=== PATIENT | female | born 1980 | race Caucasian/White ===

== ENCOUNTER 2022-08-23 16:50 | Outpatient (CLI) | payer OTHER, SELFPAY ==
--- NOTE | ~2022-08-23 | MM_ITS ---
EXAMINATION: MM screening triny BI w dawna HISTORY: Screening mammogram TECHNIQUE: Craniocaudal and mediolateral oblique 3-D tomosynthesis images were obtained and synthetic 2-D images were generated. CAD analysis was submitted and interpreted. COMPARISON: No prior mammogram is available for comparison at this institution. BREAST PARENCHYMAL COMPOSITION: There are scattered areas of fibroglandular density. FINDINGS: There is a multilobular approximately 7.5 mm circumscribed mass with calcifications in the outer mid to lower right breast. There is a larger area of asymmetric soft tissue density with some microcalcifications situated in th e posterior mid right breast on MLO view. An irregular approximately 6 mm opacity is noted in the inner left breast. Circumscribed 5 x 5 mm opacity is noted in the outer left breast. IMPRESSION: 1. Bilateral breast masses 2. Bilateral diagnostic mammography and breast ultrasound examination are recommended. BI-RADS Category 0: Incomplete: Needs additional imaging evaluation. Reviewed, dictated and finalized at location A. EW TEACHER IMPRESSION: 1. Bilateral breast masses 2. Bilateral diagnostic mammography and breast ultrasound examination are recom mended. BI-RADS Category 0: Incomplete: Needs additional imaging evaluation.
== END 2022-08-23 16:51 | disposition home or self-care (01) ==
PROVIDERS: PCP Nurse Practitioner Obstetrics & Gynecology; Visit Provider Nurse Practitioner Obstetrics & Gynecology
DX: Z12.31 Encounter for screening mammogram for malignant neoplasm of breast (principal); N63.13 Unspecified lump in the right breast, lower outer quadrant; N63.25 Unspecified lump in the left breast, overlapping quadrants
CPT/HCPCS: 77063; 77067

== ENCOUNTER 2022-09-14 13:45 | Outpatient (CLI) | payer OTHER, SELFPAY ==
--- NOTE | ~2022-09-14 | MMUS_ITS ---
EXAMINATION: MM diagnostic triny BI w dawna, US breast BI complete HISTORY: Follow-up bilateral breast asymmetries TECHNIQUE: Additional 3-D tomosynthesis images of the breasts were performed and synthetic 2-D images were generated. CAD analysis was submitted and interpreted. High resolution bilateral complete breas t ultrasound was performed. COMPARISON: 08/23/2022 BREAST PARENCHYMAL COMPOSITION: Breast composed of scattered areas of fibroglandular density FINDINGS: MAMMOGRAPHIC FINDINGS: There are no suspicious masses, calcifications or architectural distortion in the right breast to sug gest malignancy. In the left breast there are small radiolucent circumscribed nodules, likely benign. ULTRASOUND: Complete bilateral US of all 4 quadrants of the breasts and retroareolar region was reviewed. Normal heterogeneous echotexture within both breasts without focal mass. No sonographic correlate to left br east masses. IMPRESSION: 1. Probable benign findings of the left breast. No sonographic correlate. 2. Recommend 6 month follow-up diagnostic left mammogram and possible additional ultrasound. BI-RADS category 3, probably benign findings. Reviewed, dictated and finalized at location A. IMPRESSION: 1. Probable benign findings of the left breast. No sonographic correlate. 2. Recommend 6 month follow-up diagnostic left mammogram and possible additiona l ultrasound. BI-RADS category 3, probably benign findings.
== END 2022-09-14 13:46 | disposition home or self-care (01) ==
LOC: ANHIMG 13:50
PROVIDERS: PCP Nurse Practitioner Obstetrics & Gynecology; Visit Provider Nurse Practitioner Obstetrics & Gynecology
DX: R92.8 Other abnormal and inconclusive findings on diagnostic imaging of breast (principal)
CPT/HCPCS: 76641; 77062; 77066; G0279

== ENCOUNTER 2023-07-19 12:14 | Outpatient (CLI) | payer OTHER, SELFPAY ==
--- NOTE | ~2023-07-19 | MMUS_ITS ---
EXAMINATION: MM diagnostic triny LT w dawna, US breast LT limited HISTORY: Overdue six-month follow-up of probably benign left breast masses TECHNIQUE: Craniocaudal, mediolateral, and mediolateral oblique 3-D tomosynthesis images of the left breast were performed and synthetic 2-D images were generated. CAD analysis was submitted and interpr eted. High resolution limited left breast ultrasound was performed. COMPARISON: 09/14/2022, 08/23/2022 BREAST PARENCHYMAL COMPOSITION: There are scattered areas of fibroglandular density. FINDINGS: MAMMOGRAPHIC FINDINGS: There is a stable 6 mm oval, circumscribed, equal density mass in the middle third of the outer breas t approximately 6 cm from the nipple at the 3:00 location which appears to contain central fat. The p reviously described mass at the 6:00 location disperses with spot compression. ULTRASOUND: There is a 6 mm x 3 mm intramammary lymph node at the 3:00 location, 3 cm from the nipple correspondi ng to the mammographic finding in question. No suspicious cystic or solid mass is identified. IMPRESSION: 1. No mammographic or sonographic evidence of malignancy. 2. Recommend routine screening mammography, due on the right next month. BI-RADS Category 2: Benign finding(s). Reviewed, dictated and finalized at location A. ENGRAVER IMPRESSION: 1. No mammographic or sonographic evidence of malignancy. 2. Recommend routine screening mammography, due on the right next month. BI-RADS Category 2: Benign finding(s).
== END 2023-07-19 12:15 | disposition home or self-care (01) ==
LOC: ANHIMG 12:15
PROVIDERS: PCP Nurse Practitioner Obstetrics & Gynecology; Visit Provider Nurse Practitioner Obstetrics & Gynecology
DX: N63.20 Unspecified lump in the left breast, unspecified quadrant (principal)
CPT/HCPCS: 76642; 77061; 77065; G0279

== ENCOUNTER 2024-07-23 09:27 | Outpatient (CLI) | payer OTHER, SELFPAY ==
--- NOTE | ~2024-07-23 | MM_ITS ---
EXAMINATION: MM screening [facility] BI w dawna HISTORY: Screening TECHNIQUE: Craniocaudal and mediolateral oblique 3-D tomosynthesis images were obtained and synthetic 2-D images were generated. CAD analysis was submitted and interpreted. COMPARISON: Comparison to multiple prior studies sequentially, with oldest reviewed study dated 08/23. BREAST PARENCHYMAL COMPOSITION: Not dense: There are scattered areas of fibroglandular density. FINDINGS: Stable mass in the mid outer aspect of the right breast at approximately 9:00, middle third containing calcifications likely corresponding to intramammary lymph nodes seen on ultrasound dated 07/19/2023. There is a developing cluster of calcifications mid aspect of the right breast posteriorly on MLO vi ew. At least one of the calcifications appear to layer. IMPRESSION: 1. Developing cluster of indeterminate right breast calcifications. 2. Recommend exaggerated CC view, spot MLO, and mediolateral view and spot ML views. BI-RADS Category 0: Incomplete: Needs additional imaging evaluation. Reviewed, dictated and finalized at location A. AL ORGANIZATION PROFESSOR IMPRESSION: 1. Developing cluster of indeterminate right breast calcifications. 2. Recommend exaggerated CC view, spot MLO, and mediolateral view and spot ML v iews. BI-RADS Category 0: Incomplete: Needs additional imaging evaluation.
--- OUTSIDE RECORDS SUMMARY | 2024-07-23 09:58 | XMS_ITS | Referral Summary ---
Author Organization [facility] Address [address] [place] [address] Care Team Providers Care Document Manager Name Role Phone Unavailable Primary Care Provider Unavailabl e Source Comments [facility],non-owned Affiliates and Associated Physician Practices is amultiple site organization consisting of ambulatory clinics and hospital sitesin [place], [place], [place] and [place]. This disclosure is being madepursuant to the Care Everywhere program and may not contain all information available regarding this patient. Last updated 18.[facility] Allergies No known active allergies Social History Tobacco Use Types Packs/Day Years Used Date Smoking Tobacco: Never Assessed AUDIT-C Answer Date Recorded Q1: How often do you have a drink containing alcohol? Monthly or less 01/27/2023 Q2: How many drinks containi ng alcohol do you have on a typical day when you are drinking? Patient does not drink Q3: How often do you have si x or more drinks on one occasion? Never 01/27/2023 Sex and Gender Information Value Date Recorded Sex Assigned at Not on file Gender Identity Not on file Sexual Orientation Not on file Last Filed Vital Signs Vital Sign Reading Time Taken Comments Blood Pressure 132/89 01/27/2023 10:16 AM CDT Pulse 119 01/27/2023 7:45 AM CDT Temperature 36.8 ??C (98.3 ??F) 01/27/2023 7:59 AM CD T Respiratory Rate 18 01/27/2023 7:45 AM CDT Oxygen Saturation 95% 01/27/2023 10:16 AM CDT Inhaled Oxygen Concentration - - Weight 61.2 kg (135 lb) 01/27/2023 7:45 AM CDT Height 160 cm (5' 3 ) 01/27/2023 7:45 AM CDT Body Mass Index 23.91 01/27/2023 7:45 AM CDT Plan of Treatment Not on file
--- OUTSIDE RECORDS SUMMARY | 2024-07-23 09:58 | XMS_ITS | Clinical Summary ---
Author Organization [facility] Address [address] [address] Phone Care Team Providers Care Management Manager Name Role Phone Jamey Lagunas MD Unavailable [phone] Leslee Harvey NP Unavailable +- [phone] Chelsi Julio NP Primary Care Provider Allergies No known active allergies Medications multivitamin liquid Take by mouth daily Active Zubsolv 5.7-1.4 mg per SL tablet Place 6 tablets under the tongue daily 04/19/2022 Active dextroamphetamin e-amphetamine (ADDERALL) 30 mg tablet Take 1 tablet (30 mg total) by mouth 2 (two) times a day for 20 days 40 tablet 06/30/2022 Active QUEtiapine (SEROquel) 50 mg tablet Take 1 tablet (50 mg total) by mouth nightly at bedtime. 06/16/[address] (PROTONIX) 40 mg EC tabletIndication s:Stress Ulcer Prophylaxis Take 1 tablet (40 mg total) by mouth daily 90 tablet 3 08/14/2023 08/13/19 25 Active Active Problems Problem Noted Date Diagnosed Date Overweight with body mass in dex (BMI) of 25 to 25.9 in adult 08/14/2023 Assessment & Plan (08/14/2023 4:41 PM CO DIRECTOR): Wt Readings from Last 3 Encounters: 08/14/23 70.8 kg (156 lb) 07/13/23 71.7 kg (158 lb) 02/10/23 63.5 kg (140 lb) Body mass index is 25.96 kg/m??. -Discussed recommendations for exercise at least 30 minutes moderate to vigorous exercise most days of the week. (minimum 150 minutes weekly) -Discussed importance of well-balanced diet. Other chest pain 07/13/2023 Assessment & Plan (07/13/2023 2:00 PM CO DIRECTOR): Acute on chronic problem- this is a recurring problem- this is more likely related to GERD versus cardiac in nature Ordered ECG POC- NSR with ventricular rate 89 Will trial Protonix 40 mg daily- x 8 weeks Ordered referral for GI-Dr. Devlin Continue to monitor Encouraged to call 911 or seek ER if chest pain recurs and radiates to jaw, neck, left arm, or back. encouraged healthy diet and exercise Avoid trigger foods including: carbonated beverages, caffeine, spicy, fried foods, tomatoes, cucumbers, mint, and acidic fruits/juices like orange/lemon/grapefruit. Avoid eating/drinking anything for at least 2 hours before bed. Sleep with bed propped. Discussed that long-term use of proton pump inhibitors (PPIs) can cause low vitamin B12, low magnesium, diarrhea, C diff, osteoporosis-weakening of bones and kidney problems, pt would like to remain on medication at this time Gastroesophageal reflux disease without esophagi tis 07/13/2023 Assessment & Plan (08/14/2023 4:43 PM CO DIRECTOR): -recent diagnosis -patient started on Protonix 4 weeks ago, reports significant improvement in symptoms -Protonix refilled -continue current therapy Assessment & Plan (07/13/2023 2:01 PM CO DIRECTOR): Acute problem- this is a new problem Will trial Protonix 40 mg daily- x 8 weeks Ordered referral for GI-Dr. Devlin Continue to monitor Follow up with pcp in 4 weeks to re-evaluate encouraged healthy diet and exercise Avoid trigger foods including: carbonated beverages, caffeine, spicy, fried foods, tomatoes, cucumbers, mint, and acidic fruits/juices like orange/lemon/grapefruit. Avoid eating/drinking anything for at least 2 hours before bed. Sleep with bed propped. Discussed that long-term use of proton pump inhibitors (PPIs) can cause low vitamin B12, low magnesium, diarrhea, C diff, osteoporosis-weakening of bones and kidney problems, pt would like to remain on medication at this time Attention deficit hyperactiv ity disorder (ADHD), predominantly inattentive type 05/11/2022 Overview (05/17/2022): Reportedly was diagnosed by Dr. Wofle. Still awaiting records to confirm how diagnosis was made but did receive a note from his office stating she had a diagnosis and was on Adderall 12/11/2019. Records from 06/15/20 from [facility] raise concerns for drug-seeking behavior and possible amphetamine abuse. He refused to humphrey additional rx after that. Pt's substance abuse physician has been rx'ing the adderall since that time. Per PDMP review, pt was frequently getting her rx filled 3-5 days early since october of 2020. Pt on strict guidelines if we are going to manage the adderall. Will need random UDS. All illicit substance use or harassing behavior in regards to amphetamine rx will be grounds to consider dismissal from our care or cutting her off from future controlled substances from this practice. Pt is not to get any early refills or call after hours or on weekend for controlled substances Assessment & Plan (06/16/2022 9:11 AM CO DIRECTOR): -stable -currently taking Adderall 30 mg twice daily -reports she would previously and given the Adderall by Dr. Wolfe and then by another provider in [place], but she is not seeing either of those providers anymore -refer to psychiatry History of opioid abuse ([facility]) 05/11/2022 Overview (05/17/2022): Weaning off suboxone 04/2022 as no longer wants to see her substance abuse doctor and feels she is in remission Assessment & Plan (06/16/2022 9:12 AM CO DIRECTOR): -stable -currently taking zubsolv that is prescribed by Dr. Lagunas. Patient has an upcoming appointment with him in 07/2021 -reports she is trying to wean off of the zubsolv History of cervical cancer 05/11/2022 Tobacco dependence syndrome 01/27/2011 Overview (08/14/2023): Nondependent tobacco use disorder;Practice ID: 0001 Immunizations Name Administration Dates Next Due DTaP 01/23/1987, 4,1982,1982,1 Hep A, Ped Unspecified 08/02/2000 Hep A, Unspecified 09/28/2010 Hep B, Adolescent or Pediatric 08/02/2000,1999,2000 Influenza, Unspecified 07/13/2023(Deferr ed: Patient Refused),03/26/2022(Deferred: Patient Refused) MMR 02/04/1992,08/12/1983 OPV 01/23/1987, 4,1982,1982,0 1982 Td, adsorbed 01/25/1996 Surgical History Surgery Date Site/Laterality Comments CERVICAL BIOPSY W/ LOOP ELECTRODE EXCISION Medical History Medical History Date Comments Opioid use disorder Adhd Cervical cancer (CMS/HCC) (HCC) Family History Medical History Relation Name Comments Hyperlipidemia Father Breast cancer Other maternal great aunt Relation Name Status Comments Father Other maternal great aunt Alive Social History Tobacco Use Types Packs/Day Years Used Date Smoking Tobacco: Every Day Cigarettes 1 25 Smokeless Tobacco: Never Tobacco Cessation:Ready to Q uit: Not Asked; Counseling Given: Not Answered AUDIT-C Answer Date Recorded Q1: How often do you have a drink containing alc ohol? Monthly or less 08/14/2023 Q2: How many drinks containi ng alcohol do you have on a typical day when you are drinking? 1 or 2 08/14/2023 Q3: How often do you have si x or more drinks on one occasion? Never 08/14/2023 PHQ-2 Answer Date Recorded PHQ-2 Total Score (If total score is 3 or more points, staff should administer the PHQ-9) 1 08/14/2023 Personal Safety Answer Date Recorded Getting School Help Needed Not on file 06/16 Comments No Sex and Gender Information Value Date Recorded Sex Assigned at Not on file Legal Sex Female 8:06 AM CO DIRECTOR Gender Identity Not on file Sexual Orientation Not on file Obstetrics History Last Filed Vital Signs Vital Sign Reading Time Taken Comments Blood Pressure 147/97 09/25/2023 3:59 PM CDT Pulse 100 09/25/2023 3:59 PM CDT Temperature 36.8 ??C (98.3 ??F) 09/25/2023 3:59 PM CD T Respiratory Rate 18 09/25/2023 3:59 PM CDT Oxygen Saturation 97% 09/25/2023 3:59 PM CDT Inhaled Oxygen Concentration - - Weight 69.5 kg (153 lb 4.8 oz) 09/25/2023 3:59 P M CDT Height 165.1 cm (5' 5 ) 09/25/2023 3:59 PM CDT Body Mass Index 25.51 09/25/2023 3:59 PM CDT Plan of Treatment Health Maintenance Due Date Last Done Comments Hepatitis C Screening 1982 Pneumococcal vaccine <65 (1 of 2 - PCV) 01/27/1988 DTaP/Tdap/Td Vaccine (6 - Tdap) 1996 01/25/1996, 01/23/1987, 02/08/1984, Additional history exists Cervical Cancer Screening 08/18/2022 08/18/2021 Regular Well Visit/Exam 18-64 06/16/2023 06/16/2022 Breast Cancer Screening-Mammogram 08/25/2023 08/24/2022 Covid-19 Vaccine ( season) 2024 09/19/2020, 08/27/2020 Influenza Vaccine (#1) 2024 Depression Screening 08/14/2024 08/14/2023, 07/13/2023, 06/16/2022, Additional history exists HPV Vaccines Aged Out No longer eligi ble based on patient's age to complete this topic Varicella Vaccines Discontinued Procedures Procedure Name Priority Date/Time Associated Diagnosis Comments HM PAP SMEAR WITH HPV Routine 08/18/2021 from Last 3 Months or Most Recently Relevant to Health Maintenance Results * HM PAP SMEAR WITH HPV (08/18/2021) Historical Provider HEALTH MAINTENANCE Final Result from Last 3 Months or Most Recently Relevant to Health Maintenance Insurance [facility] Care Teams Management Manager Relationship Specialty Start Date End Date Chelsi Julio NP [address] [place] [address] PCP - General Family Medicine 06/16/22 Jamey Lagunas MD [address] [place] [address] [place] [address] Consulting Physician Emergency Medicine 06/16/22 [place] [address] [place] [address] [place] [address] Nurse Practitioner Nurse Practitioner 06/16/22
--- OUTSIDE RECORDS SUMMARY | 2024-07-23 09:58 | XMS_ITS | Patient Health Summary ---
Author Organization [facility] Address [address] [place] [address] Care Team Providers Care Channel Worker Name Role Phone Unavailable Primary Care Provider Unavailabl e Note from [facility],non-owned Affiliates and Associated Physician Practices is amultiple site organization consisting of ambulatory clinics and hospital sitesin [place], [place], [place] and [place]. This disclosure is being madepursuant to the Care Everywhere program and may not contain all information available regarding this patient. Last updated 18.[facility] Allergies No known active allergies Social History [...] Mass Index 23.91 01/27/2023 7:45 AM CDT Procedures * XR FINGERS LEFT 2VW OR MORE(Performed 01/27/2023) Performed for Injury of finger of left hand, initial encounter Results * XR FINGERS LEFT 2VW OR MORE (01/27/2023 9:11 AM CDT) Anatomical Region Laterality Modality Upper Extremity, Wrist / Hand Ra diographic Imaging 01/27/2023 9:41 AM CDT Narrative 01/27/2023 9:42 AM CDT EXAM: XR FINGERS LEFT 2VW OR MORE INDICATION: S69.92XA: Unspecified injury of left wrist, hand and finger(s), initial encounter, left third finger injury COMPARISON: none available FINDINGS: The soft tissues of the distal tip of the third finger has been partially amputated. There is a tiny nondisplaced tuft fracture of the distal aspect of the distal phalanx of the third finger. A radiodense foreign body is not identified. No other fracture is seen. > Interpreting Provider: Tashi Tong JR, MD on 01/27/2023 9:42 AM Procedure Note Tashi Tong MD - 01/27/2023 EXAM: XR FINGERS LEFT 2VW OR MORE INDICATION: S69.92XA: Unspecified injury of left wrist, hand andfinger(s), initial encounter, left third finger injury COMPARISON: none available FINDINGS: The soft tissues of the distal tip of the third finger has beenpartially amputated. There is a tiny nondisplaced tuft fracture of the distalaspect of the distal phalanx of the third finger. A radiodense foreign body isnot identified. No other fracture is seen. > Interpreting Provider: Tashi Tong JR, MD on 01/27/2023 9:42 AM Vida Hightoewr MD DIAGNOSTIC IMAGING O RDERABLES
--- OUTSIDE RECORDS SUMMARY | 2024-07-23 09:58 | XMS_ITS | Referral Summary ---
Author Organization [facility] Address [address] [address] Phone Care Team Providers Care Vice President Of Talent Acquisition Name Role Phone Jamey Lagunas MD Unavailable +- [phone] Leslee Harvey NP Unavailable +- [phone] Chelsi Julio NP Primary Care Provider Allergies [...] 08/14/2023 Assessment & Plan (08/14/2023 4:41 PM STRAW HAT BRIM RAISER OPERATOR): Wt Readings from Last 3 Encounters: 08/14/23 70.8 kg (156 lb) 07/13/23 71.7 kg (158 lb) 02/10/23 63.5 kg (140 lb) Body mass index is 25.96 kg/m??. -Discussed recommendations for exercise at least 30 minutes moderate to vigorous exercise most days of the week. (minimum 150 minutes weekly) -Discussed importance of well-balanced diet. Other chest pain 07/13/2023 Assessment & Plan (07/13/2023 2:00 PM STRAW HAT BRIM RAISER OPERATOR): Acute on chronic problem- this is a [...] 07/13/2023 Assessment & Plan (08/14/2023 4:43 PM STRAW HAT BRIM RAISER OPERATOR): -recent diagnosis -patient started on Protonix 4 weeks ago, reports significant improvement in symptoms -Protonix refilled -continue current therapy Assessment & Plan (07/13/2023 2:01 PM STRAW HAT BRIM RAISER OPERATOR): Acute problem- this is a new problem [...] Overview (05/17/2022): Reportedly was diagnosed by Dr. Wolfe. Still awaiting records to confirm how diagnosis [...] substances Assessment & Plan (06/16/2022 9:11 AM STRAW HAT BRIM RAISER OPERATOR): -stable -currently taking Adderall 30 mg twice daily -reports she would previously and given the Adderall by Dr. Wolfe and then by another provider in [place], but she is not seeing either of those providers anymore -refer to psychiatry History of opioid abuse ([facility]) 05/11/2022 Overview (05/17/2022): Weaning off suboxone 04/2022 as no longer wants to see her substance abuse doctor and feels she is in remission Assessment & Plan (06/16/2022 9:12 AM STRAW HAT BRIM RAISER OPERATOR): -stable -currently taking zubsolv that is prescribed [...] OPV 01/23/1987, 4,1982,1982,0 1982 Td, adsorbed 01/25/1996 Social History Tobacco Use Types Packs/Day Years [...] on file Legal Sex Female 8:06 AM STRAW HAT BRIM RAISER OPERATOR Gender Identity Not on file Sexual Orientation [...] 09/25/2023 3:59 PM CDT Plan of Treatment Not on file Procedures Procedure Name Priority Date/Time Associated Diagnosis Comments PAP SMEAR WITH HPV Routine 08/18/2021 from Last 3 Months or Most Recently Relevant to Health Maintenance Results * PAP SMEAR WITH HPV (08/18/2021) Historical Provider HEALTH MAINTENANCE Final Result from Last 3 Months or Most Recently Relevant to Health Maintenance Insurance [facility] Care Teams Vice President Of Talent Acquisition Relationship Specialty Start Date End Date Chelsi Julio NP [address] [address] PCP - General Family Medicine 06/16/22 Jamey Lagunas MD [address] [place] [address] Consulting Physician Emergency Medicine 06/16/22 Leslee Harvey NP [address] [place] [address] Nurse Practitioner Nurse Practitioner 06/16/22
--- OUTSIDE RECORDS SUMMARY | 2024-07-23 09:58 | XMS_ITS | Clinical Summary ---
Author Organization [facility] Address [address] [place] [address] Care Team Providers Care [place] Nurse Name Role Phone Unavailable Primary Care Provider Unavailabl e Source Comments [facility],non-owned Affiliates and Associated Physician Practices is amultiple site organization consisting of ambulatory clinics and hospital sitesin [place], [place], [place] and [place]. This disclosure is being madepursuant to the Care Everywhere program and may not contain all information available regarding this patient. Last updated 18.[facility] Allergies No known active allergies Social History [...] 01/27/2023 7:45 AM CDT Plan of Treatment Health Maintenance Due Date Last Done Comments LIPID TESTING 1982 MAMMOGRAM 1982 HIV SCREENING 1997 HEPATITIS C SCREENING 01/22/2000 DTAP/TDAP/TD VACCINES (1 - Tdap) 2001 HEPATITIS B VACCINE (1 of 3 - 19+ 3-dose series) 2001 COVID-19 VACCINE (1 - 2023-2 5 season) 2024 INFLUENZA VACCINE (#1) 2024 DEPRESSION SCREENING 06/26/2024 PAP SMEAR 08/23/2025 08/23/2022 ZOSTER VACCINE (1 of 2) 01/27/2032 HIB VACCINE Aged Out No longer eligi ble based on patient's age to complete this topic HPV VACCINE Aged Out No longer eligi ble based on patient's age to complete this topic MENINGOCOCCAL (Group B) VACCINE Aged Out No longer eligible based on patient's age to complete this topic MENINGOCOCCAL VACCINE Aged Out No james judith eligible based on patient's age to complete this topic PNEUMOCOCCAL VACCINE Aged Out No long er eligible based on patient's age to complete this topic
--- OUTSIDE RECORDS SUMMARY | 2024-07-23 09:59 | XMS_ITS ---
Author Organization [facility] Address [address] [place] [address] Care Team Providers Care Boiler/Chiller Technician Name Role Phone Gus Elena Primary Care Provider Soumya Morales Unavailable [phone] REASON FOR VISIT medication Social History Sex Assigned At : Social History Observation Description Sex Assigned At Female Encounters Encounter Location Date Provider Diagnosis [address] [place] [address] 07/12/2024 Soumya Morales Plan Of Treatment No Information Progress Notes * Gladys FARNSWORTHDOB:[birth year] (44 yo F)Acc No.[id number]:07/12/2024 Patient:?Gladys FARNSWORTH :1980???Age:44 Y???Sex:Female Address:[address], [place], [address] * true * Date:? Generated for Printi ng/Faxing/eTransmitting on:?07/23/2024 09:59 AM QA AUTOMATION ARCHITECT
--- OUTSIDE RECORDS SUMMARY | 2024-07-23 09:59 | XMS_ITS ---
Author Organization [facility] Address [address] [place] [address] Care Team Providers Care Oil Field Roustabout Name Role Phone Gus Elena Primary Care Provider Soumya Morales Unavailable [phone] REASON FOR VISIT medication Social History Sex Assigned At : Social History Observation Description Sex Assigned At Female Encounters Encounter Location Date Provider Diagnosis [address] [place] [address] 07/15/2024 Soumya Morales Plan Of Treatment No Information Progress Notes * Gladys FARNSWORTHDOB:[birth year] (44 yo F)Acc No.[id number]:07/15/2024 Patient:?Gladys FARNSWORTH :1980???Age:44 Y???Sex:Female Address:[address], [place], [address] * true * Date:? Generated for Printi ng/Faxing/eTransmitting on:?07/23/2024 09:58 AM CUSTOMS COLLECTOR
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
--- OUTSIDE RECORDS SUMMARY | 2024-07-23 09:59 | XMS_ITS | Patient Health Record ---
Author Organization [facility] Address [address] [place] [address] Care Team Providers Care Residential Coordinator Name Role Phone UlicesGus Primary Care Provider Soumya Morales Unavailable [phone] Cortez Garza Unavailable [phone] Sixto Zepeda Unavailable [phone] Paula Santana Unavailable [phone] [place] Herbert Unavailable [phone] Shira Kent Unavailable [phone] Allergies Allergen (clinical drug ingredient) Drug/Non Drug Allergy documented on EMR Reaction Allergy Type Onset Date Status No Known Drug Allergy Unknown Drug Allergy Active Results Component Value Reference Range Notes QuantiFERON-TB Gold Plus Reviewed date:05/09/2024 08:04:16 AM Interpretation: Performing Lab:[facility], [address] [facility], Phone - [phone], Director - Enrike Notes/Report: QuantiFERON Incubation Incubation performed. QuantiFERON-TB Gold Plus Negative Negative No response to M tuberculosis antigens detected. Infection with M tuberculosis is unlikely, but high risk individuals should be considered for additional testing (ATS/IDSA/CDC Clinical Practice Guidelines, 2017). The reference range is an Antigen minus Nil result of <0.35 IU/mL. Chemiluminescence immunoassay methodology QuantiFERON Criteria QuantiFERON-TB Gold Plus is a qualitative indirect test for M tuberculosis infection (including disease) and is intended for use in conjunction with risk assessment, radiography, and other medical and diagnostic evaluations. The QuantiFERON-TB Gold Plus result is determined by subtracting the Nil value from either TB antigen (Ag) value. The Mitogen tube serves as a control for the test. QuantiFERON TB1 Ag Value 0.04 QuantiFERON TB2 Ag Value 0.03 QuantiFERON Nil Value 0.00 QuantiFERON Mitogen Value >10.00 12 Panel Urine Drug Screen Reviewed date:02/07/2024 02:58:54 PM Interpretation: Performing Lab: Notes/Report: THC neg MICHELE neg MOP (OPI) neg AMP POS MET POS BAR neg BZO neg MDMA POS MTD neg OXY neg PCP neg BUP POS 12 Panel Urine Drug Screen Reviewed date:03/14/2024 03:21:21 PM Interpretation: Performing Lab: Notes/Report: THC NEG MICHELE NEG MOP (OPI) POS AMP POS MET POS BAR NEG BZO NEG MDMA POS MTD NEG OXY NEG PCP NEG BUP POS 12 Panel Urine Drug Screen Reviewed date:05/03/2024 02:07:18 PM Interpretation: Performing Lab: Notes/Report: THC neg MICHELE neg MOP (OPI) neg AMP POS MET neg BAR neg BZO neg MDMA neg MTD neg OXY neg PCP neg BUP POS 12 Panel Urine Drug Screen Reviewed date:06/06/2024 04:08:52 PM Interpretation: Performing Lab: Notes/Report: THC neg MICHELE neg MOP (OPI) neg AMP POS MET neg BAR neg BZO eg MDMA neg MTD neg OXY neg PCP neg BUP POS 12 Panel Urine Drug Screen Reviewed date:07/08/2024 03:24:08 PM Interpretation: Performing Lab: Notes/Report: THC neg MICHELE neg MOP (OPI) neg AMP POS MET neg BAR neg BZO neg MDMA neg MTD neg OXY neg PCP neg BUP POS 12 Panel Urine Drug Screen Reviewed date:01/19/2024 02:32:32 PM Interpretation: Performing Lab: Notes/Report: THC neg MICHELE neg MOP (OPI) neg AMP POS MET POS BAR neg BZO neg MDMA POS MTD neg OXY neg PCP neg BUP POS Vitamin D, 25-Hydroxy* Reviewed date:03/07/2024 06:11:03 PM Interpretation: Performing Lab:[facility], [address] [facility], [place], Phone - [phone], Director - Enrike Notes/Report: Vitamin D, 25-Hydroxy 29.1 30.0-100.0 ng/mL Vitamin D deficiency has been defined by the [place] of Medicine and an Endocrine Society practice guideline as a level of serum 25-OH vitamin D less than 20 ng/mL (1,2). The Endocrine Society went on to further define vitamin D insufficiency as a level between 21 and 29 ng/mL (2). 1. IOM ([place] of Medicine). 2010. Dietary reference intakes for calcium and D. [place]: The National Academies Press. 2. Donna MF, Maritza SR, Roshan OCONNOR, et al. Evaluation, treatment, and prevention of vitamin D deficiency: an Endocrine Society clinical practice guideline. JCEM. 2010; 96(7):1911-30. TSH+Free T4* Reviewed date:03/07/2024 06:11:25 PM Interpretation: Performing Lab[facility], Phone - [phone], Director - [facility] Notes/Report: TSH 1.280 0.450-4.500 uIU/mL T4,Free(Direct) 1.21 0.82-1.77 ng/dL Lipid Panel* Reviewed date:03/07/2024 06:11:12 PM Interpretation: Performing Lab:[facility], [address] [place] [address], Phone - [phone], [facility] Notes/Report: Cholesterol, Total 167 100-199 mg/dL Triglycerides 102 0-149 mg/dL HDL Cholesterol 46 >39 mg/dL VLDL Cholesterol Js 19 5-40 mg/dL LDL Chol Calc (NIH) 102 0-99 mg/dL Selena Box LP Default Reviewed date:03/07/2024 06:10:38 PM Interpretation: Performing Lab:[facility], Phone - [phone], [facility] Notes/Report: Selena Box LP Default A hand-written panel/profile was received from your office. In accordance with the [facility] Ambiguous Test Code Policy dated December 2002, we have completed your order by using the closest currently or formerly recognized AMA panel. We have assigned Lipid Panel, Test Code #[id number] to this request. If this is not the testing you wished to receive on this specimen, please contact the [facility] Client Inquiry/Technical Services Department to clarify the test order. We appreciate your business. 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 Stress is when someone feels tense, nervous, anxious, or can\t sleep at night because their mind is troubled Quite a bit In the past year have you sp ent more than 2 nights in a row in a [facility], skilled nursing, intermediate center, or juvenile correctional facility? No Are [...] relationships. 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 Affiliation- Scientologist - - - - - - - [...] - - - - - - - Problems Problem Type SNOMED Code ICD Code Onset Dates Problem Status W/U Status Risk Notes Problem Tobacco user (490472937) Nicotine dependence, unspecified, uncomplicated (F17.200) Active confirmed Problem Attention deficit hyperactivity disorder (077374660) ADHD (attention deficit hyperactivity disorder) (F90.9) Active confirmed Problem Generalized anxiety disorder (10338336) PARRISH (generalized anxiety disorder) (F41.1) Active confirmed Problem Sleep disturbance (98206039) Sleep disturbance (G47.9) Active confirmed Problem Cervical cancer (088029406) Cervical cancer (C53.9) Active confirmed Problem Tobacco use (707346921) Tobacco use disorder (F17.200) Active confirmed Problem Mental disorder caused by drug (967050273) Opioid use disorder (F11.99) Active confirmed Vital Signs Heart Rate 85 /min 07/08/2024 Temperature 98.6 degrees Fahrenheit 06/06/2024 Respiratory Rate 16 /min 07/08/2024 Blood pressure diastolic 82 mm Hg 07/08/2024 Oximetry 98 % 07/08/2024 Height 64 in 07/08/2024 Blood pressure systolic 132 mm Hg 07/08/2024 Weight 167.2 lbs 07/08/2024 BMI 28.7 kg/m2 07/08/2024 Encounters Encounter Location Date Provider Diagnosis [address] [place] [address] 01/19/2024 Cortez Garza Opioid use disorder F11.99 ; ADHD (attention deficit hyperactivity disorder) F90.9 ; Overweight (BMI 25.0-29.9) E66.3 and Tobacco use disorder F17.[address] [place] [address] 01/19/2024 [place] [facility] [address] [address] 02/07/2024 Shira Kent Opioid use disorder F11.99 ; Dietary counseling Z71.3 and Overweight (BMI 25.0-29.9) E66.[address] [address] 02/07/2024 [place] [facility] [address] [address] 02/21/2024 Soumya Morales Opioid use disorder F11.99 ; ADHD (attention deficit hyperactivity disorder) F90.9 ; PARRISH (generalized anxiety disorder) F41.1 and Sleep disturbance G47.[address] [address] 03/06/2024 Soumya Morales ADHD (attention deficit hyperactivity disorder) F90.9 ; Opioid use disorder F11.99 ; PARRISH (generalized anxiety disorder) F41.1 ; Sleep disturbance G47.9 and Medication management Z79.[address] [address] 03/14/2024 Cortez Garza Opioid use disorder F11.99 ; Nutritional counseling Z71.3 and Overweight (BMI 25.0-29.9) E66.[address] [address] 04/16/2024 Soumya Morales ADHD (attention deficit hyperactivity disorder) F90.9 ; PARRISH (generalized anxiety disorder) F41.1 ; Opioid use disorder F11.99 ; Sleep disturbance G47.9 and Medication management Z79.[address] [address] 05/03/2024 Sixto Zepeda Opioid use disorder F11.99 ; Overweight (BMI 25.0-29.9) E66.3 ; Nutritional counseling Z71.3 and Nicotine dependence, unspecified, uncomplicated F17.[address] [place] [address] 05/14/2024 Soumya Morales ADHD (attention deficit hyperactivity disorder) F90.9 ; PARRISH (generalized anxiety disorder) F41.1 ; Opioid use disorder F11.99 ; Sleep disturbance G47.9 and Medication management Z79.[address] [address] 06/06/2024 Sixto Zepeda Opioid use disorder F11.99 ; Overweight (BMI 25.0-29.9) E66.3 ; Nutritional counseling Z71.3 and Nicotine dependence, unspecified, uncomplicated F17.[address] [address] 07/08/2024 Shira Kent Opioid use disorder F11.[address] [address] 07/17/2024 Soumya Morales ADHD (attention deficit hyperactivity disorder) F90.9 ; PARRISH (generalized anxiety disorder) F41.1 ; Opioid use disorder F11.99 ; Sleep disturbance G47.9 and Medication management Z79.[address] [address] 01/12/2024 [facility] [address] [address] 01/24/2024 [facility] [address] [address] 02/21/2024 Soumya Morales [address] [address] 03/07/2024 Gus Elena [address] [address] 03/08/2024 Gus Elena [address] [address] 06/28/2024 Sixto Zepeda [address] [address] 07/08/2024 Gus Elena [address] [place] [address] 07/11/2024 Paula Santana ADHD (attention deficit hyperactivity disorder) F90.9 [facility] [address] [place] [address] 01/15/2024 Cortez Garza [facility] [address] [place] [address] 01/18/2024 [facility] [address] [place] [address] 01/20/2024 [facility] [place] [address] 01/24/[address] [place] [address] 02/01/2024 Sixto Zepeda Opioid use disorder F11.[address] [place] [address] 02/16/2024 Gus Elena [address] [place] [address] 02/19/2024 Gus Elena [address] [place] [address] 03/08/2024 Gus Elena [address] [place] [address] 04/12/2024 Shira Kent Opioid use disorder F11.[address] [place] [address] 04/14/2024 Shira Kent [address] [place] [address] 04/14/2024 Suomya Morales [address] [place] [address] 04/15/2024 Soumya Morales [address] [place] [address] 04/15/2024 Shira Kent [address] [place] [address] 04/24/2024 Shira Kent Opioid use disorder F11.[address] [place] [address] 05/20/2024 Shira Kent Opioid use disorder F11.[address] [place] [address] 05/20/2024 Shira Kent [address] [place] [address] 06/04/2024 Soumya Morales ADHD (attention deficit hyperactivity disorder) F90.[address] [address] 06/04/2024 Soumya Morales ADHD (attention deficit hyperactivity disorder) F90.9 and Opioid use disorder F11.[address] [address] 06/04/2024 Soumya Morales [address] [address] 06/05/2024 Soumya Morales [address] [address] 06/05/2024 Soumya Morales [address] [place] [address] 06/16/2024 Soumya Morales ADHD (attention deficit hyperactivity disorder) F90.[address] [place] [address] 06/27/2024 Sixto Zepeda [address] [address] 06/28/2024 Sixto Zepeda Opioid use disorder F11.[address] [place] [address] 06/28/2024 Sixto Zepeda [address] [place] [address] 07/09/2024 Soumya Morales [address] [place] [address] 07/12/2024 Soumya Morales [address] [address] 07/15/2024 Soumya Morales Assessments Encounter Date Diagnosis (ICD Code) Assessment Notes Treatment Notes Treatment Clinical Notes Section Notes 02/07/2024 Opioid use disorder (ICD-10 - F11.99) 03/06/2024 ADHD (attention deficit hyperactivity disorder) (ICD-10 - F90.9) 03/14/2024 Nutritional counseling (ICD-10 - Z71.3) 03/14/2024 Opioid use disorder (ICD-10 - F11.99) 05/14/2024 ADHD (attention deficit hyperactivity disorder) (ICD-10 - F90.9) 05/20/2024 Opioid use disorder (ICD-10 - F11.99) 06/16/2024 ADHD (attention deficit hyperactivity disorder) (ICD-10 - F90.9) 06/04/2024 ADHD (attention deficit hyperactivity disorder) (ICD-10 - F90.9) 06/04/2024 ADHD (attention deficit hyperactivity disorder) (ICD-10 - F90.9) CancelRx Response got Denied on 2024-06-05 18:37:11 for 'Amphetamine-Dextr oamphetamine 30 MG Tablet'Pharmacy Notes: Prescription not found. Contact Pharmacy by other means 05/03/2024 Overweight (BMI 25.0-29.9) (ICD-10 - E66.3) 05/03/2024 Opioid use disorder (ICD-10 - F11.99) 04/24/2024 Opioid use disorder (ICD-10 - F11.99) 04/16/2024 ADHD (attention deficit hyperactivity disorder) (ICD-10 - F90.9) 04/12/2024 Opioid use disorder (ICD-10 - F11.99) 02/21/2024 ADHD (attention deficit hyperactivity disorder) (ICD-10 - F90.9) 02/21/2024 Opioid use disorder (ICD-10 - F11.99) 02/01/2024 Opioid use disorder (ICD-10 - F11.99) 01/19/2024 ADHD (attention deficit hyperactivity disorder) (ICD-10 - F90.9) Client agrees to f/u with psych provider for further refills. 01/19/2024 Opioid use disorder (ICD-10 - F11.99) 07/17/2024 ADHD (attention deficit hyperactivity disorder) (ICD-10 - F90.9) [place] concerns. 07/11/2024 ADHD (attention deficit hyperactivity disorder) (ICD-10 - F90.9) CancelRx Response got Denied on 2024-07-17 09:53:57 for 'Amphetamine-Dextr oamphetamine 30 MG Tablet'Pharmacy Notes: Prescription not found. Contact Pharmacy by other means 07/08/2024 Opioid use disorder (ICD-10 - F11.99) Spoke to [facility] pharmacist, they currently have Zubsolv 1.4/0.36 mg in stock, 0.7/0.18mg will have to be ordered 06/28/2024 Opioid use disorder (ICD-10 - F11.99) 06/06/2024 Overweight (BMI 25.0-29.9) (ICD-10 - E66.3) 06/06/2024 Opioid use disorder (ICD-10 - F11.99) 06/06/2024 Nutritional counseling (ICD-10 - Z71.3) 07/17/2024 PARRISH (generalized anxiety disorder) (ICD-10 - F41.1) 01/19/2024 Overweight (BMI 25.0-29.9) (ICD-10 - E66.3) 02/21/2024 PARRISH (generalized anxiety disorder) (ICD-10 - F41.1) 04/16/2024 PARRISH (generalized anxiety disorder) (ICD-10 - F41.1) 05/03/2024 Nutritional counseling (ICD-10 - Z71.3) 06/04/2024 Opioid use disorder (ICD-10 - F11.99) 05/14/2024 PARRISH (generalized anxiety disorder) (ICD-10 - F41.1) 03/06/2024 Opioid use disorder (ICD-10 - F11.99) 03/14/2024 Overweight (BMI 25.0-29.9) (ICD-10 - E66.3) 03/06/2024 PARRISH (generalized anxiety disorder) (ICD-10 - F41.1) 02/07/2024 Dietary counseling (ICD-10 - Z71.3) 03/06/2024 Sleep disturbance (ICD-10 - G47.9) 02/07/2024 Overweight (BMI 25.0-29.9) (ICD-10 - E66.3) 05/14/2024 Opioid use disorder (ICD-10 - F11.99) 05/03/2024 Nicotine dependence, unspecified, uncomplicated (ICD-10 - F17.200) 02/21/2024 Sleep disturbance (ICD-10 - G47.9) 01/19/2024 Tobacco use disorder (ICD-10 - F17.200) 06/06/2024 Nicotine dependence, unspecified, uncomplicated (ICD-10 - F17.200) 04/16/2024 Opioid use disorder (ICD-10 - F11.99) 07/17/2024 Opioid use disorder (ICD-10 - F11.99) 07/17/2024 Sleep disturbance (ICD-10 - G47.9) 04/16/2024 Sleep disturbance (ICD-10 - G47.9) Client self-discontinued quetiapine due to 20 lb weight gain. Cortez sent Rx for hydroxyzine. 05/14/2024 Sleep disturbance (ICD-10 - G47.9) 03/06/2024 Medication management (ICD-10 - Z79.899) May self-administer medications or be administered own oral medications per [facility] protocols. Provided informed consent with understanding of side effects, adverse effects, risks and benefits as well as alternative treatments as previously discussed and with the above recommended medications & other aspects of the treatment program. Agrees to return sooner if symptoms worsen or suicidal or homicidal ideations occur. 05/14/2024 Medication management (ICD-10 - Z79.899) May self-administer medications or be administered own oral medications per [facility] protocols. Provided informed consent with understanding of side effects, adverse effects, risks and benefits as well as alternative treatments as previously discussed and with the above recommended medications & other aspects of the treatment program. Agrees to return sooner if symptoms worsen or suicidal or homicidal ideations occur. Client self-disconti nued quetiapine due to weight gain. 04/16/2024 Medication management (ICD-10 - Z79.899) May self-administer medications or be administered own oral medications per [facility] protocols. Provided informed consent with understanding of side effects, adverse effects, risks and benefits as well as alternative treatments as previously discussed and with the above recommended medications & other aspects of the treatment program. Agrees to return sooner if symptoms worsen or suicidal or homicidal ideations occur. 07/17/2024 Medication management (ICD-10 - Z79.899) May self-administer medications or be administered own oral medications per [facility] protocols. Provided informed consent with understanding of side effects, adverse effects, risks and benefits as well as alternative treatments as previously discussed and with the above recommended medications & other aspects of the treatment program. Agrees to return sooner if symptoms worsen or suicidal or homicidal ideations occur. Client self-disconti nued quetiapine due to weight gain. 01/19/2024 Other Client agrees to take medication as prescribed. Discussed medication side effects, adverse effects, risks, benefits, as well as interactions. Encouraged non-use of opioids. Has naloxone. Recommended participation in recovery groups/counseling services. Agrees to contact office with questions or concerns. 01/19/2024 Other Provided case management services to address social determinants of health needs and reduce barriers to health care services. 02/07/2024 Other Client agrees to take medication as prescribed. Discussed medication side effects, adverse effects, risks, benefits, as well as interactions. Encouraged non-use of opioids and other illicit substances. Has naloxone. Understand that discontinuing buprenorphine increases the risk of overdose upon return to illicit opioid use. Know that that use of alcohol or benzodiazepines with buprenorphine increases the risk of overdose and . Education provided about safe storage of medications. Encourage participation in recovery groups/counseling services. Patient understands that all treating providers/physicia ns should be informed of buprenorphine use as part of a Medication Assisted Recovery program. Contact office with questions or concerns. 02/07/2024 Other Provided case management services to address social determinants of health needs and reduce barriers to health care services. 02/21/2024 Other May self-administer medications or be administered own oral medications per [facility] protocols. Provided informed consent with understanding of side effects, adverse effects, risks and benefits as well as alternative treatments as previously discussed and with the above recommended medications & other aspects of the treatment program. Agrees to return sooner if symptoms worsen or suicidal or homicidal ideations occur. 05/03/2024 Other Potential side effects of buprenorphine discussed, as well as taking buprenorphine as prescribed. Dangers of using other controlled substances (prescribed or illegal/including benzodiazepines) with buprenorphine discussed. Patient understands taking other narcotics with buprenorphine could lead to respiratory distress and even . Patient understands that ALL treating providers/physicia ns should be informed of buprenorphine use as part of a Medication Assisted Treatment program 06/06/2024 Other Potential side effects of buprenorphine discussed, as well as taking buprenorphine as prescribed. Dangers of using other controlled substances (prescribed or illegal/including benzodiazepines) with buprenorphine discussed. Patient understands taking other narcotics with buprenorphine could lead to respiratory distress and even . Patient understands that ALL treating providers/physicia ns should be informed of buprenorphine use as part of a Medication Assisted Treatment program 07/08/2024 Other Patient agrees to take medication as prescribed. Discussed medication side effects, adverse effects, risks, benefits, as well as interactions. Encouraged non-use of opioids and other illicit substances. Has naloxone. Discontinuing buprenorphine increases the risk of overdose upon return to illicit opioid use. Use of alcohol or benzodiazepines with buprenorphine increases the risk of overdose and . Education provided about safe storage of medications. Encouraged participation in recovery groups/counseling services. Contact office with questions or concerns. 03/14/2024 Other Client agrees to take medication as prescribed. Discussed medication side effects, adverse effects, risks, benefits, as well as interactions. Encouraged non-use of opioids. Has naloxone. Recommended participation in recovery groups/counseling services. May contact office with questions or concerns. Plan Of Treatment No Information Insurance Providers Payer Name Payer Address Payer Phone Subscriber Number Group Number Insured Name Patient Relationship to Insured Coverage Start Date Coverage End Date [employer] [facility] Attn Claims Department [address] [place] [address] [phone] [id number] Gladys Farnsworth Self - patient is the insured [facility] Attn Claims Department [address] [place] [address] [phone] [id number] Gladys Farnsworth Self - patient is the insured 4 Medical (General) History Medical History History ICD Code Cervical cancer C53.9 reduced bladder capacity Surgical History Surgery Date(Month/Year) 3rd finger, left hand 2022 Uterine Ablation 2004
--- OUTSIDE RECORDS SUMMARY | 2024-07-23 09:59 | XMS_ITS | Data Portability ---
Author Organization [facility] [place] Address [address] [place] [address] Assessment Encounter Date Assessment Date Assessment LastModified by Organization Details LastModified Time 08/23/2022 08/23/2022 Annual gynecological exam performed. Patient will come back in a year unless there are new symptoms. [email or web address] Not available 08/23/2022 16:53:53 Plan of Treatment Reminders Order Date Submit Date Provider Last Modified By Organization Details Last Modified Time Details Appointments [facility] 2024 08:30A IAN White Not available Not available Not available Lab urinalysi s, dipstick 2023 024 [email or web address] [place], [address], [place], [address], 03/05/2024 10:09:46 Referral None recorded. Procedures None recorded. Surgeries None recorded. Imaging US, pelvis [email or web address], [address], [address], [place], [address], 04/12/2022 22:18:15 US, transvagi nal 2021 [email or web address], [address], [place], [address], 04/12/2022 22:18:15 MAMMO, screening , bilateral [address] [facility], [address], [address], [place], [address], 05/02/2022 10:00:12 MAMMO, screening , bilateral 2022 023 [facility], [address], [address], [place], [address], 03/05/2023 05:01:35 Medication Orders None recorded. Patient TargetsNo targets recorded. Patient InstructionsNo instructions recorded. Reason for Referral None Reported. Results Created Date Observation Date Name Description Value Unit Range Abnormal Flag Note LastModifiedBy Organization Detail LastModifiedTime 04/06/2004/06/2022 pregn holden test, urine HCG negati ve Not Available [place] [address], [place], [address], 04/06/2022 16:46:09 03/05/20 24 03/05/2024 CULTU RE: URINE result report SEE RESULT S BELOW Test: Cultu re: Urine Speci men Sourc e: Urine - Clean Catch Speci men Type: Urine Speci men Date: 2023 0923 Resul t Date: 2023 0606 Resul t Statu s: Final resul t Abnor mal: No Resul ting Lab: [facility] [address] [facility] [address] Tel: CULTU RE ----- ----- ----- --- No growt h in 1 day (dete ction level of 10,00 0 colon ies / ml.) Not Available [facility] (Lab) [address] [facility], [place], [address], 03/07/2024 07:11:23 03/05/20 24 03/05/2024 urina lysis , dipst ick Leukocytes Trace Not Available Jessie rosas [address], [place], [address], 03/05/2024 10:08:47 03/05/20 03/05/2024 urina lysis , dipst ick Nitrite Negati ve Not Available [place] [address], [place], [address], 03/05/2024 10:08:47 03/05/20 24 03/05/2024 urina lysis , dipst ick Urobilinogen Normal Not Available [facility] [address], [place], [address], 03/05/2024 10:08:47 03/05/20 24 03/05/2024 urina lysis , dipst ick Protein Trace Not Available [place] [address], [place], [address], 03/05/2024 10:08:47 03/05/20 24 03/05/2024 urina lysis , dipst ick pH 5 Not Available [place] [address], [place], [address], 03/05/2024 10:08:47 03/05/20 24 03/05/2024 urina lysis , dipst ick Specific [place] 1.030 Not Available [facility] [address], [place], [address], 03/05/2024 10:08:47 03/05/20 24 03/05/2024 urina lysis , dipst ick Ketone Negati ve Not Available [place] [address], [place], [address], 03/05/2024 10:08:47 03/05/20 24 03/05/2024 urina lysis , dipst ick Bilirubin Negati ve Not Available [place] [address], [place], [address], 03/05/2024 10:08:47 03/05/20 24 03/05/2024 urina lysis , dipst ick Glucose Normal Not Available [place] [address], [place], [address], 03/05/2024 10:08:47 03/05/20 24 03/05/2024 urina lysis , dipst ick Color Dark Yellow Not Available [place] [address], [place], [address], 03/05/2024 10:08:47 04/12/20 22 04/12/2022 US, pelvi s No observ ation record ed. [email or web address] [place] [address], [place], [address], 04/12/2022 17:54:41 04/12/20 22 04/12/2022 US, trans vagin al No observ ation record ed. [email or web address] [place] [address], [place], [address], 04/12/2022 17:54:30 04/12/20 22 04/12/2022 US, pelvi s No observ ation record ed. PEGGY Shereen [address], [place], [address], 05/04/2022 14:26:31 08/25/19 23 08/23/2022 MAMMO , scree terri, bilat eral No observ ation record ed. [place] [address], [place], [address], 11/07/2022 12:12:16 08/25/19 23 08/23/2022 MAMMO , scree terri, bilat eral No observ ation record ed. [address], [place], [address], 11/07/2022 12:14:03 05/15/20 23 09/14/2022 MAMMO , diagn ostic , digit al, bilat eral No observ ation record ed. [email or web address] [facility] [address], [place], [address], 05/15/2023 15:21:39 Result Notes None recorded. 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 16:28:25 Tobacco dependen ce syndrome [id number] Completed 201005/12/2021 Nondepen dent tobacco use disorder ;Practic e ID: 0001 Rosibel mills, [facility] 13:14:58 Vaginiti s and vulvovag initis Completed 201002/17/2021 Vaginiti s and vulvovag initis, unspecif ied;Prac crissy ID: 0001 Oliva Barragan MD [address], [place], [address], [facility] 16:28:33 Family planning surveill ance Completed 201102/17/2021 Contrace ptive surveill ance, unspecif ied;Prac crissy ID: 0001 Oliva Barragan MD [address], [place], [address], [place] [facility] 16:28:21 Problem Notes None recorded. Procedures Surgical History Date Name Laterality Status Provider Name and Address Organization Details Recorded Time 023 Date of Last Mammogram completed Doris Chávez [facility] 07/23/2024 09:41:29 022 Date of Last Pap Smear completed Rosibel Crabtree [facility] 04/06/2022 16:36:22 loop electrosurgical excision procedure completed IAN Lemus [address], [place], [address], [facility] 07/23/2024 09:40:52 Imaging Results Imaging Date Name Status LastModified by Organization Details LastModified Time 04/12/2022 US, pelvis completed [email or web address] [place] [address], [place], [address], 04/12/2022 17:54:41 04/12/2022 US, transvaginal [email or web address] [address], [place], [address], 04/12/2022 17:54:30 04/12/2022 US, pelvis completed PEGGY Shereen [address], [place], [address], 05/04/2022 14:26:31 08/23/2022 MAMMO, screening, bilateral completed [address], [address], 11/07/2022 12:12:16 08/23/2022 MAMMO, screening, bilateral completed [address], [address], 11/07/2022 12:14:03 09/14/2022 MAMMO, diagnostic, digital, bilateral completed [address] [facility] [address], [place], [address], 05/15/2023 15:21:39 Procedure Notes None recorded. Medical Equipment None Reported. Allergies No known drug allergies Medications Name Sig Start Date Stop Date Status Note LastModified by Organization Details LastModified Time fluoxetin e 40 mg capsule TAKE 1 CAPSULE BY MOUTH EVERY DAY FOR 30 DAYS 07/23 completed Not Available Not Available Not Available bupropion HCl SR 150 mg tablet,12 hr sustained -release TK 1 T PO BID 02/17 completed Not Available Not Available Not Available clonidine HCl 0.1 mg tablet TK 1 T PO QD HS 02/17 completed Not Available Not Available Not Available ropinirol e 1 mg tablet TK 1 T PO QD HS 05/05 completed Not Available Not Available Not Available trazodone 50 mg tablet TAKE 1 TABLET BY MOUTH AT BEDTIME 02/17 completed Not Available Not Available Not Available fluconazo le 150 mg tablet Take 1 tablet every day by oral route as directed for 1 day. 04/21 completed Not Available Not Available Not Available prednison e 20 mg tablet 07/23 completed Not Available Not Available Not Available hydroxyzi ne HCl 50 mg tablet TAKE 1 TABLET BY MOUTH TWICE DAILY FOR ACUTE OPIOID THERAPY 02/17 completed Not Available Not Available Not Available quetiapin e 100 mg tablet TAKE 1 TABLET BY MOUTH EVERY DAY NEEDED FOR 30 DAYS 07/23 completed Not Available Not Available Not Available dextroamp hetamine- amphetami ne 30 mg tablet TAKE 1 TABLET BY MOUTH TWICE A DAY FOR 30 DAYS active Not Available Not Available No t Available carbamaze pine 200 mg tablet TK 2 TS PO QD HS 05/05 completed Not Available Not Available Not Available Metrogel Vaginal 0.75 % (37.5 mg/5 gram) insert 1 applicat orful (37.5MG) by vaginal route every day at bedtime 04/03 completed Prescrib ed Elsewher e: No Locat ion: [facility] odify By: cmedical Encount er DateTime : 03/23/20 11 11:22:05 AM Not Available Not Available Not Available cephalexi n 500 mg capsule TAKE 1 CAPSULE BY MOUTH TWICE DAILY FOR 10 DAYS 02/17 completed Not Available Not Available Not Available pantopraz ole 40 mg tablet,de layed release 07/23 completed Not Available Not Available Not Available triamcino lone acetonide 0.1 % topical ointment APPLY A THIN LAYER TO THE AFFECTED AREA(S) BY TOPICAL ROUTE 2 TIMES PER DAY x 7 days PRN 08/23 completed Not Available Not Available Not Available dextroamp hetamine- amphetami ne 20 mg tablet TK 1 T PO QD 05/05 completed Not Available Not Available Not Available dextroamp hetamine- amphetami ne 15 mg tablet 07/23 completed Not Available Not Available Not Available gabapenti n 300 mg capsule TK 1 C PO TID PRN 05/05 completed Not Available Not Available Not Available hydroxyzi ne HCl 25 mg tablet TAKE 1 TABLET NEEDED FOR SLEEP ORALLY ONCE A DAY 30 DAYS active Not Available Not Available No t Available hydrochlo rothiazid e 25 mg tablet TAKE 1 TABLET BY MOUTH EVERY DAY 02/17 completed Not Available Not Available Not Available mupirocin 2 % topical ointment APPLY SMALL AMOUNT EXTERNAL LY TO THE AFFECTED AREA TWICE DAILY 02/17 completed Not Available Not Available Not Available multivita min capsule take 1 capsule by oral route every day active Prescrib ed Elsewher e: Yes Loca tion: [facility] odify By: cmedical Encount er DateTime : 04/03/20 12 01:00:00 PM Not Available Not Available Not Available amoxicill in 875 mg-potass ium clavulana te 125 mg tablet TAKE 1 TABLET BY MOUTH TWICE DAILY FOR 10 DAYS 07/23 completed Not Available Not Available Not Available bupropion HCl SR 200 mg tablet,12 hr sustained -release TAKE 1 TABLET BY MOUTH TWICE DAILY 02/17 completed Not Available Not Available Not Available escitalop rosales 10 mg tablet TAKE 1 TABLET BY MOUTH EVERY DAY 07/23 completed Not Available Not Available Not Available nitrofura ntoin monohydra te/macroc rystals 100 mg capsule TAKE 1 CAPSULE BY MOUTH EVERY 12 HOURS FOR 7 DAYS 07/23 completed Not Available Not Available Not Available Adderall 08/18 completed Not Available Not Available Not Available Chantix Starting Month Edgardo 0.5 mg (11)-1 mg (42) tablets in dose pack take 1 - 2 by Oral route every day as directed 02/02 completed Prescrib ed Elsewher e: No Locat ion: [facility] odify By: meaghan chew DateTime : 09/10/19 14 02:00:00 PM Not Available Not Available Not Available quetiapin e 50 mg tablet TAKE 1 TABLET BY MOUTH EVERYDAY AT BEDTIME 07/23 completed Not Available Not Available Not Available Vyvanse 50 mg capsule TAKE 1 CAPSULE BY MOUTH EVERY DAY IN THE MORNING FOR 14 DAYS 07/23 completed Not Available Not Available Not Available Chantix Continuin g Month Box 1 mg tablet take 1 tablet (1MG) by oral route 2 times every day with a glass of water after meals 10/08 completed Prescrib ed Elsewher e: No Locat ion: [facility] odify By: meaghan chew DateTime : 09/10/19 14 02:00:00 PM Not Available Not Available Not Available Zubsolv 1.4 mg-0.36 mg sublingua l tablet 1 TABLET UNDER THE TONGUE AND ALLOW TO DISSOLVE SUBLINGU AL TWICE DAILY 5 DAYS 07/23 completed Not Available Not Available Not Available Zubsolv 5.7 mg-1.4 mg sublingua l tablet TAKE 1 SUBLINGU AL TABLET ONCE A DAY 07/23 completed Not Available Not Available Not Available Zubsolv 2.9 mg-0.71 mg sublingua l tablet TAKE 1 SUBLINGU AL TABLETS ONCE A DAY 07/23 completed Not Available Not Available Not Available Zubsolv 0.7 mg-0.18 mg sublingua l tablet 1 TABLET UNDER THE TONGUE AND ALLOW TO DISSOLVE SUBLINGU AL TWICE A DAY 27 DAYS active Not Available Not Available No t Available Vitals Date Recorded Body height Body mass index (BMI) Body weight Provider Name and Address Organization Details Last Updated DateTime 04/21/2022 162.56 cm 25.6 kg/m2 34253.26 g Rosibel Crabtree [place] [facility] 04/21/2022 17:18:23 Date Recorded Systolic blood pressure Diastolic blood pressure Provider Name and Address Organization Details Last Updated DateTime 04/21/2022 122 mm[Hg] 74 mm[Hg] Leslee Harvey, [facility] [address], [place], [address], [facility] 04/21/2022 17:38:39 Date Recorded Body height Body mass index (BMI) Body weight Provider Name and Address Organization Details Last Updated DateTime 08/23/2022 162.56 cm 24.4 kg/m2 38894.55 g Rosibel Shukri [facility] 08/23/2022 16:54:25 Date Recorded Systolic blood pressure Diastolic blood pressure Provider Name and Address Organization Details Last Updated DateTime 08/23/2022 114 mm[Hg] 80 mm[Hg] Leslee Harvey, [facility] [address], [place], [address], [facility] 08/23/2022 17:07:17 Date Recorded Body height Provider Name an d Address Organization Details Last Updated DateTime 03/05/2024 162.56 cm Cassy Melendez [facility] 03/05/2024 10:08:27 Date Recorded Body height Body mass index (BMI) Body weight Systolic blood pressure Diastolic blood pressure Systolic blood pressure Diastolic blood pressure Provider Name and Address Organization Details Last Updated DateTime 162.56 cm 27.8 kg/m2 59217.9 6 g 146 mm[Hg] 85 mm[Hg] 144 mm[Hg] 91 mm[Hg] Doris Chávez [facility] 10:31:23 Social History Question Answer Notes LastModified by Organizat ion Details LastModified Time Tobacco Smoking Status Current Every Day Smoker Luz Elena Ty mills, [facility] 08/23/2022 16:37:27 Do You Have An Advance Directive? No Information not available 08/18/2021 What Is Your Level Of Alcohol Consumption? Occasional Information not available 05/12/2021 How Many Years Have You Consumed Alcohol? 20 Information not available 08/18/2021 Are You Blind Or Do You Have Difficulty Seeing? No Information not available 05/12/2021 What Is Your Level Of Caffeine Consumption? Moderate Information not available 08/18/2021 How Much Tobacco Do You Chew? None Information not available 08/18/2021 In The 14 Days Before Symptom Onset, Have You Had Close Contact With A Laboratory-confir med COVID-19 While That Case Was Ill? No Information not available 08/18/2021 In The 14 Days Before Symptom Onset, Have You Had Close Contact With A Person Who Is Under Investigation For COVID-19 While That Person Was Ill? No Information not available 08/18/2021 Have You Been To An Area Known To Be High Risk For COVID-19? No Information not available 08/18/2021 Are You Deaf Or Do You Have Serious Difficulty Hearing? No Information not available 05/12/2021 What Type Of Diet Are You Following? REGULAR Information not available 05/12/2021 What Is The Highest Grade Or Level Of School You Have Completed Or The Highest Degree You Have Received? 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 No Information not available 08/18/2021 Do You Use Protection During Sex? Usually Information not available 08/18/2021 Do You Use Your Seat Belt Or Car Seat Routinely? Yes Information not available 05/12/2021 Do You Have Smoke And Carbon Monoxide Detectors In Your Home? Yes Information not available 05/12/2021 At What Age Did You Start Smoking Tobacco? 17 Information not available 08/18/2021 How Much Tobacco Do You Smoke? 1 PPD Information not available 08/18/2021 Do You Feel Stressed (tense, Restless, Nervous, Or Anxious, Or Unable To Sleep At Night)? [id number] Information not available 05/12/2021 Do You Use Any Illicit Or Recreational Drugs? No Information not available 05/12/2021 Do You Use Sunscreen Routinely? Yes Information not available 05/12/2021 Have You Used IV Drugs? No Information not available 08/18/2021 Sex: Unknown Functional Status Question Answer Note LastModified by Organizat ion Details LastModified Time Do you have difficulty walking or climbing stairs? No [email or web address] Information not available 08/23/2022 Are you able to walk? YESWOREST Information not available 05/12/2021 Are you able to care for yourself? Yes [email or web address] Information not available 08/23/2022 Do you have difficulty dressing or bathing? No Information not available 08/23/2022 What is your exercise level? Moderate Information not available 08/18/2021 Mental Status None recorded. Family History Relationship Description Onset Age of this Age Resolved Age Notes LastModified by Organization Details LastModified Time Maternal Grandmother Heart disease Not available 2021 17:18:37 Maternal Grandmother Disorder of thyroid gland Not available 2021 17:18:37 Father Diabetes mellitus Not available 2021 17:18:37 Father Hypercholest erolemia Not available 2021 17:18:37 Father Hypertensive disorder Not available 2021 17:18:37 Mother Hypertensive disorder [email or web address] Not available 2023 09:26:18 Notes:Father - small cell ca rcinoma Medical History Condition Response Other Y Cancer Y Gynecological History Statement/Question Response Date of Last Mammogram 09/14/2022 Flow Heavy Date of LMP 07/10/2024 On BCP's at Conception? N N Was last menstrual period normal N STIs/STDs Y HPV Vaccine Y Duration of Flow (days) 14 Current Control Method None Are cycles usually normal Y Sexually Active? N Menses Monthly Y Age of first menstrual cycle 14 Date of Last Pap Smear 08/18/2021 Sexual Problems? N Desired Control Method N/A LMP Definite N Obstetrics History GPAL:G 1 P 0 0 1 0 Type Value Induced 1 Total 1 Past Encounters Encounter ID Performer Location Encounter Start Date Encounter Closed Date Diagnosis/Indication Diagnosis SNOMED-CT Code Diagnosis ICD10 Code Diagnosis Note [id number] Leslee Harvey [facility] [address] [address] 05/05/2020 14:23:06 05/05/2020 17:50:27 Gynecologic examination 22563485 Z01.419 Take Calcium with Vitamin D 1200mg daily if not receiving in daily diet. It is strongly advised to have an annual flu shot and up can obtain at most pharmacies . If you have not had a TDap shot in the last 10 years you should obtain one as well. Discussed with patient & provided with informatio n regarding Gardisil vaccine to prevent the 4 strains for HPV that cause cervical cancer if under age 26. Encourage safe sexual practices, to use condoms and limit partners if not already in a monogamous relationsh ip. Do monthly self breast exams. Have mammogram yearly or every other year depending on family history. BRCA testing is now available for patients with strong genetic history of female cancer. If interested contact the office. Engage in daily exercise of low impact aerobic exercise 45-60 minutes 4-5 times weekly. Avoid tobacco and illicit drugs as well as using moderation with alcohol intake less than 1-2 8 oz beverages daily. This lifestyle behavior pattern will lead to less health conditions and longer life span. If BMI greater than 25 weight watchers or dietary consult advised. Patient received above instructio ns, and questions have been answered. If you have any questions please call or respond to this email. Patient was made aware of the patient portal and may obtain a paper copy of today's plan if desired. Hx Leep Cervix has been sensitive since this time. Some pain with SA but only a couple positions that hit straight on cervix. No BC. Wants to consider Hysterecto my; periods can be somewhat heavy at times but not excessive. Can schedule MD consult if interested in her options. Pap/hpv updated No other issues or concerns. Declines need std screening Encouraged smoking cessation. [id number] Oliva Barragan MD [place] [address] [address] 02/17/2021 16:09:38 02/17/2021 18:00:57 Vaginal discharge 070855156 N89.8 Venereal d isease screening 258850243 Z11.3 [id number] Leslee Harvey [facility] [address] [address] 08/18/2021 16:39:32 08/18/2021 17:37:10 Gynecologic examination [id number] Z01.419 Take Calcium with Vitamin D 1200mg daily if not receiving in daily diet. It is strongly advised to have an annual flu shot and up can obtain at most pharmacies . If you have not had a TDap shot in the last 10 years you should obtain one as well. Discussed with patient & provided with informatio n regarding Gardisil vaccine to prevent the 4 strains for HPV that cause cervical cancer if under age 26. Encourage safe sexual practices, to use condoms and limit partners if not already in a monogamous relationsh ip. Do monthly self breast exams. Have mammogram yearly or every other year depending on family history. BRCA testing is now available for patients with strong genetic history of female cancer. If interested contact the office. Engage in daily exercise of low impact aerobic exercise 45-60 minutes 4-5 times weekly. Avoid tobacco and illicit drugs as well as using moderation with alcohol intake less than 1-2 8 oz beverages daily. This lifestyle behavior pattern will lead to less health conditions and longer life span. If BMI greater than 25 weight watchers or dietary consult advised. Patient received above instructio ns, and questions have been answered. If you have any questions please call or respond to this email. Patient was made aware of the patient portal and may obtain a paper copy of today's plan if desired. Hx Leep Pap/hpv updated No other issues or concerns. Std screening sent Encouraged smoking cessation. [id number] [address] [address] 04/06/2022 16:14:30 04/06/2022 17:57:16 Abnormal uterine bleeding [id number] 9100 N93.9 Exam tenderness in adnexal bilaterall ySuspect yeast on exam (likely from wearing multiple lori-pads for the extended period spotting). We discussed updated TVUS to evaluate the surroundin g structures .Declined need for STD screening- not routinely SA/no new partners. UPT neg Time spent in visit is a total of 26 mins with at least 50% of visit consisting of counseling and review of plan of care. Vaginitis [id number] N76.0 Treated for suspected yeast todayRx sent Counseled on medication R/B's, Most common side effects, & use. All questions were answered to patient satisfacti on. [id number] Sera Crabtree [place] [address],[place] [address] 04/12/2022 16:33:47 04/12/2022 17:40:27 Irregular periods [id number] N92.6 [id number] Leslee Harvey [facility] [address],[place] [address] 04/21/2022 16:32:52 04/21/2022 17:40:15 Abnormal uterine bleeding [id number] 9100 N93.9 US reviewedSx 's have resolvedWe agreed to monitor since sx's gone.Will check in at her upcoming [employer] in 07/2022 and if any thing changes contact us sooner. Time spent in visit is a total of 15 mins with at least 50% of visit consisting of counseling and review of plan of care. Screening mammography 24 [id number] Z12.31 [id number] Leslee Harvey [facility] [address],[place] [address] 08/23/2022 16:37:21 08/25/2022 14:29:54 Gynecologic examination [id number] Z11.51 Z11.3 Z11.8 Take Calcium with Vitamin D 1200mg daily if not receiving in daily diet. It is strongly advised to have an annual flu shot and up can obtain at most pharmacies . If you have not had a TDap shot in the last 10 years you should obtain one as well. Discussed with patient & provided with informatio n regarding Gardisil vaccine to prevent the 4 strains for HPV that cause cervical cancer if under age 26. Encourage safe sexual practices, to use condoms and limit partners if not already in a monogamous relationsh ip. Do monthly self breast exams. Have mammogram yearly or every other year depending on family history. BRCA testing is now available for patients with strong genetic history of female cancer. If interested contact the office. Engage in daily exercise of low impact aerobic exercise 45-60 minutes 4-5 times weekly. Avoid tobacco and illicit drugs as well as using moderation with alcohol intake less than 1-2 8 oz beverages daily. This lifestyle behavior pattern will lead to less health conditions and longer life span. If BMI greater than 25 weight watchers or dietary consult advised. Patient received above instructio ns, and questions have been answered. If you have any questions please call or respond to this email. Patient was made aware of the patient portal and may obtain a paper copy of today's plan if desired. Pap/hpv sent STD Screen declined Genetic Screen discussed Colon Screen na Dexa Screen na Routine Labs PCPMammo ordered Screening mammography 24 411596 Z12.31 [id number] Cassy Melendez [place] [address],[place] [address] 03/05/2024 09:25:57 03/05/2024 13:30:53 Urinary symptoms [id number] R39.9 Health Concerns Section Related Observation LastModified by Organization Detai ls LastModified Time None Recorded Concern Status LastModified by Organization Details LastModified Time None Recorded Advance Directives Directive N: Payers Encounter Date Sequence Insurance Name Policy Number Policy Sterling Covered Member ID Sterling Member ID Guarantor Name 04/12/2022 1 [facility] ON OR AFTER 12/24/20 (MEDICAID REPLACEMENT - HMO) [id number] Gladys Farnsworth [id number] Gladys Farnsworth 04/21/2022 1 [facility] ON OR AFTER 12/24/20 (MEDICAID REPLACEMENT - HMO) [id number] Gladys Farnsworth [id number] Gladys Farnsworth 08/23/2022 1 [facility] ON OR AFTER 20 (MEDICAID REPLACEMENT - HMO) [id number] Gladys Farnsworth [id number] Gladys Farnsworth 03/05/2024 1 [facility] ON OR AFTER 12/24/20 (MEDICAID REPLACEMENT - HMO) [id number] Gladys Farnsworth [id number] Gladys Farnsworth Notes Date Note Type Note Provider Name and Address Organization Details Recorded Time 04/21/2022 text/html Here today for U S review. Leslee Harvey, IAN- [address], [place], [address], [facility] 04/21/2022 17:40:33 08/23/2022 text/html Annual GYNReport ed bypatient.History: no gynecologic complaints Menstrual cycle:Normal menses Urinary symptoms:No hematuria; No incontinence Vulva:No genital lesion Vagina:Normal vaginal discharge Breast:No breast pain; No breast lump; No nipple discharge Current Contraception:Sati sfied with current contraception; Condoms Sexual complaints:No sexual complaints; No pain during intercourse; Normal libido Menopausal Symptoms:No menopausal symptoms; Normal vaginal lubrication Psychological symptoms:No depression; No anxiety; No PMDD Preventive measures:Encourage self breast examination; Encourage regular exercise; Encourage no tobacco use; Encourage regular mammograms starting age 40; Followed with yearly pap smears IAN [facility]- [address], [place], [address], [facility] 08/24/2022 09:45:11 OBGyn Episode Ob Episode Information Episode Created Date Number of Fetuses Patient Bloodtype Patient rh Status Prepregnancy Weight lbs Domestic Partner Domestic Partner Phone Father Name Bulk Station Operator Status 02/18/20 21 1 CLOSED Fetus Data First Name Last Name Admitted to NICU Weight (g) Sex Living Outcome Pediatric Complications Fetus ID Race Codes Race Delivery Type , Induced [id number] Kartik Calculation Initial Kartik Date Initial Exam Date Initial Exam Provider Initial Ultrasound Date Last Menstrual Period Date Ultra Sound Weeks Gestation 0 Eighteen To Twenty Week Kartik Update Ultra Sound Date Fundal Height At Umbil Quickening Date Ultra Sound Latest Weeks Gestation Final Kartik Confirmed By Final Kartik Confirmed Date Final Kartik Date Ultra Sound Latest Days Gestation 0 0 Menstrual History Last Menstrual Date Menses Monthly On Bcp Conception Prior Menses Frequency Hcg Plus Date Menarche Onset Age Delivery Information Delivery Date Delivery Type Labor Anesthesia Weeks Gestation Incision Type Labor Labor Length Hrs Delivered By Post Complications Tubal Sterilization Discharge Date Comments 1 12 Discharge Information Feeding Method Contraceptive Method Maternal HG B and HCT Levels
== END 2024-07-23 09:28 | disposition home or self-care (01) ==
LOC: ANHIMG 09:30
PROVIDERS: Visit Provider Nurse Practitioner
DX: Z12.31 Encounter for screening mammogram for malignant neoplasm of breast (principal); R92.8 Other abnormal and inconclusive findings on diagnostic imaging of breast
CPT/HCPCS: 77063; 77067

== ENCOUNTER 2024-09-13 13:27 | Outpatient (CLI) | payer OTHER, SELFPAY ==
--- NOTE | ~2024-09-13 | MM_ITS ---
EXAMINATION: MM diagnostic triny RT w dawna HISTORY: Follow-up right breast calcifications TECHNIQUE: Additional 3-D tomosynthesis images of the right breast were performed and synthetic 2-D i mages were generated. CAD analysis was submitted and interpreted. COMPARISON: Comparison to multiple prior studies sequentially, with oldest reviewed study dated 08/23. BREAST PARENCHYMAL COMPOSITION: Not dense: There are scattered areas of fibroglandular density. FINDINGS: There is a cluster of indeterminate calcifications in the posterior central aspect of the r ight breast near the pectoralis muscle. These have a relatively monomorphic appearance some of which appear to layer on the MLO view. There are no suspicious masses or architectural distortion. IMPRESSION: 1. Probable benign right breast calcifications located posteriorly and centrally. 2. Recommend 6 month follow-up diagnostic right mammogram BI-RADS category 3, probably benign findings. Reviewed, dictated and finalized at location B. IMPRESSION: 1. Probable benign right breast calcifications located posteriorly and centrall y. 2. Recommend 6 month follow-up diagnostic right mammogram BI-RADS category 3, probably benign findings.
--- OUTSIDE RECORDS SUMMARY | 2024-09-13 13:49 | XMS_ITS | Clinical Summary ---
Author Organization [facility] Address [address] [place] [address] Care Team Providers Care Driver Education Road Instructor Name Role Phone Unavailable Primary Care Provider Unavailabl e Source Comments [facility],non-owned Affiliates and Associated Physician Practices is amultiple site organization consisting of ambulatory clinics and hospital sitesin [place], [place], [place] and [place]. This disclosure is being madepursuant to the Care Everywhere program and may not contain all information available regarding this patient. Last updated 18.[facility] Allergies No known active allergies Social History [...] 119 01/27/2023 7:45 AM CDT Temperature 36.8 C (98.3 F) 01/27/2023 7:59 AM CDT Respiratory Rate 18 01/27/2023 7:45 AM CDT [...] to complete this topic MENINGOCOCCAL (Group B) VACC INE SHARED DECISION-MAKING Aged Out No longer eligibl e based on patient's age to complete this topic MENINGOCOCCAL GROUPS A/C/Y/W VACCINE Aged Out No longer eligible b ased on patient's age to complete this topic PNEUMOCOCCAL VACCINE Aged Out No long er eligible based on patient's age to complete this topic
--- OUTSIDE RECORDS SUMMARY | 2024-09-13 13:49 | XMS_ITS | Referral Summary ---
Author Organization [facility] Address [address] [address] Phone Care Team Providers Care Industrial Electrical Technician Name Role Phone Jamey Lagunas MD Unavailable +1- [phone] Leslee Harvey NP Unavailable +- [phone] Chelsi Julio NP Primary Care Provider Allergies [...] by mouth daily 90 tablet 3 08/14/2023 Active Active Problems Problem Noted Date Diagnosed Date Overweight with body mass in dex (BMI) of 25 to 25.9 in adult 08/14/2023 Assessment & Plan (08/14/2023 4:41 PM LINING CUTTER): Wt Readings from Last 3 Encounters: 08/14/23 70.8 kg (156 lb) 07/13/23 71.7 kg (158 lb) 02/10/23 63.5 kg (140 lb) Body mass index is 25.96 kg/m . -Discussed recommendations for exercise at least 30 minutes moderate to vigorous exercise most days of the week. (minimum 150 minutes weekly) -Discussed importance of well-balanced diet. Other chest pain 07/13/2023 Assessment & Plan (07/13/2023 2:00 PM LINING CUTTER): Acute on chronic problem- this is a [...] 07/13/2023 Assessment & Plan (08/14/2023 4:43 PM LINING CUTTER): -recent diagnosis -patient started on Protonix 4 weeks ago, reports significant improvement in symptoms -Protonix refilled -continue current therapy Assessment & Plan (07/13/2023 2:01 PM LINING CUTTER): Acute problem- this is a new problem [...] substances Assessment & Plan (06/16/2022 9:11 AM LINING CUTTER): -stable -currently taking Adderall 30 mg twice daily -reports she would previously and given the Adderall by Dr. Wolfe and then by another provider in [place], but she is not seeing either of those providers anymore -refer to psychiatry History of opioid abuse 05/11/2022 Overview (05/17/2022): Weaning off suboxone 04/2022 as no longer wants to see her substance abuse doctor and feels she is in remission Assessment & Plan (06/16/2022 9:12 AM LINING CUTTER): -stable -currently taking zubsolv that is prescribed by Dr. Lagunas. Patient has an upcoming appointment with him in 07/2021 -reports she is trying to wean off of the zubsolv History of cervical cancer 05/11/2022 Tobacco dependence syndrome 01/27/2011 Overview (08/14/2023): Nondependent tobacco use disorder;Practice ID: 0001 Immunizations Immunization Administration Dates Next Due DTaP 01/23/1987, 4,1982,1982,1 [...] on file Legal Sex Female 8:06 AM LINING CUTTER Gender Identity Not on file Sexual Orientation Not on file Last Filed Vital Signs Vital Sign Reading Time Taken Comments Blood Pressure 147/97 09/25/2023 3:59 PM CDT Pulse 100 09/25/2023 3:59 PM CDT Temperature 36.8 C (98.3 F) 09/25/2023 3:59 PM CDT Respiratory Rate 18 09/25/2023 3:59 PM CDT [...] Most Recently Relevant to Health Maintenance Insurance [facility] Care Teams Industrial Electrical Technician Relationship Specialty Start Date End Date Chelsi Julio NP [address] [address] PCP - General Family Medicine 06/16/22 Jamey Lagunas MD [address] [address] Consulting Physician Emergency Medicine 06/16/22 Leslee Harvey NP [address] [address] Nurse Practitioner Nurse Practitioner 06/16/22
--- OUTSIDE RECORDS SUMMARY | 2024-09-13 13:49 | XMS_ITS | Clinical Summary ---
Author Organization [facility] Address [address] [address] Phone Care Team Providers Care Nanotechnology Technician Name Role Phone Jamey Lagunas MD Unavailable +1- [phone] Leslee Harvey NP Unavailable +- [phone] Chelsi Julio NP Primary Care Provider Allergies [...] 08/14/2023 Assessment & Plan (08/14/2023 4:41 PM DOOR MAKER): Wt Readings from Last 3 Encounters: 08/14/23 [...] 07/13/2023 Assessment & Plan (07/13/2023 2:00 PM DOOR MAKER): Acute on chronic problem- this is a [...] 07/13/2023 Assessment & Plan (08/14/2023 4:43 PM DOOR MAKER): -recent diagnosis -patient started on Protonix 4 weeks ago, reports significant improvement in symptoms -Protonix refilled -continue current therapy Assessment & Plan (07/13/2023 2:01 PM DOOR MAKER): Acute problem- this is a new problem [...] substances Assessment & Plan (06/16/2022 9:11 AM DOOR MAKER): -stable -currently taking Adderall 30 mg twice daily -reports she would previously and given the Adderall by Dr. Wolfe and then by another provider in [place], but she is not seeing either of those providers anymore -refer to psychiatry History of opioid abuse 05/11/2022 Overview (05/17/2022): Weaning off suboxone 04/2022 as no longer wants to see her substance abuse doctor and feels she is in remission Assessment & Plan (06/16/2022 9:12 AM DOOR MAKER): -stable -currently taking zubsolv that is prescribed [...] Comments Opioid use disorder Adhd Cervical cancer (HCC) Family History Medical History Relation Name [...] on file Legal Sex Female 8:06 AM DOOR MAKER Gender Identity Not on file Sexual Orientation [...] Last Done Comments Hepatitis C Screening 1982 DTaP/Tdap/Td Vaccine (6 - Tdap) 1996 01/25/1996, 01/23/1987, 02/08/1984, Additional history exists Pneumococcal vaccine <65 (1 of 2 - PCV) 2001 Cervical Cancer Screening 08/18/2022 08/18/2021 Regular Well Visit/Exam 18-64 06/16/2023 06/16/2022 Breast Cancer Screening-Mammogram 08/25/2023 08/24/2022 Covid-19 Vaccine ( season) 2024 09/19/2020, 08/27/2020 Influenza Vaccine (#1) 2024 Depression Screening 08/14/2024 08/14/2023, 07/13/2023, 06/16/2022, Additional history exists Hepatitis B Screening Completed 08/02/2000 , 03/01/2000, 2000 HPV Vaccines Aged Out No longer eligi [...] Most Recently Relevant to Health Maintenance Insurance [facility] Care Teams Nanotechnology Technician Relationship Specialty Start Date End Date Chelsi Julio NP [address] [place] [address] PCP - General Family Medicine 06/16/22 Jamey Lagunas MD [address] [place] [address] [place] [id number] Consulting Physician Emergency Medicine 06/16/22 [place] [address] [place] [address] [place] [id number] Nurse Practitioner Nurse Practitioner 06/16/22
--- OUTSIDE RECORDS SUMMARY | 2024-09-13 13:50 | XMS_ITS ---
Author Organization [facility] Address [address] [place] [address] Care Team Providers Care Nursing Unit Clerk Name Role Phone Gus Elena Primary Care Provider [phone] Soumya Morales Unavailable [phone] REASON FOR VISIT meds Social History Sex Assigned At : Social History Observation Description Sex Assigned At Female Encounters Encounter Location Date Provider Diagnosis [address] [place] [address] 09/10/2024 Soumya Morales Plan Of Treatment No Information Progress Notes * Gladys FARNSWORTHDOB:[birth year] (44 yo F)Acc No.[id number]:09/10/2024 Patient: Gladys NICOLAS :1980 A ge:44 Y S ex:Female Address:[address], [place], [address] * true * Date: Generated for Printi ng/Fajaymeg/eTransmitting on: 0 09/13/2024 01:49 PM CDT
--- OUTSIDE RECORDS SUMMARY | 2024-09-13 13:50 | XMS_ITS ---
Author Organization [facility] Address [address] [place] [address] Care Team Providers Care Plug Machine Operator Name Role Phone Gus Elena Primary Care Provider [phone] Soumya Morales Unavailable [phone] Cortez Garza Unavailable [phone] REASON FOR VISIT meds. Social History Sex Assigned At : Social History Observation Description Sex Assigned At Female Encounters Encounter Location Date Provider Diagnosis [address] [place] [address] 09/09/2024 Cortez Garza Plan Of Treatment No Information Progress Notes * Gladys FARNSWORTHDOB:[birth year] (44 yo F)Acc No.[id number]:09/09/2024 Patient: Gladys NICOLAS :1980 A ge:44 Y S ex:Female Address:[facility] [address], [place], [address] * true * Date: Generated for Printi ng/Faxing/eTransmitting on: 0 09/13/2024 01:49 PM CDT
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
--- OUTSIDE RECORDS SUMMARY | 2024-09-13 13:50 | XMS_ITS | Data Portability ---
Author Organization [facility] [place] Address [address] [place] [address] Assessment Encounter Date Assessment Date Assessment LastModified by Organization Details LastModified Time 08/23/2022 08/23/2022 Annual gynecological exam performed. Patient will come back in a year unless there are new symptoms. [email or web address] Not available 08/23/2022 16:53:53 07/23/2024 07/23/2024 Annual gynecological exam performed. Patient will come back in a year unless there are new symptoms. Not available 07/23/2024 09:21:18 Plan of Treatment Reminders Order Date Submit Date Provider Last Modified By Organization Details Last Modified Time Details Appointments None recorded. Lab urinalysis, dipstick 2023 024 [email or web address] [place], [address], [place], [address], 4 10:09:46 Referral None recorded. Procedures None recorded. Surgeries None recorded. Imaging MAMMO, screening, digital, bilateral 2024 025 [facility], [address], [address], [place], [address], 5 11:47:59 MAMMO, screening, bilateral 2022 023 [facility], [address], [address], [place], [address], 3 05:01:35 MAMMO, screening, bilateral [email or web address] [place] [address] Breast C[facility], [address], [address], [place], [address], 2 10:00:12 US, pelvis 2021 022 [email or web address] [place], [address], [place], [address], 22:18:15 US, transvagina l 2021 022 [email or web address] [place], [address], [place], [address], 22:18:15 Medication Orders None recorded. Patient TargetsNo targets recorded. Patient InstructionsNo instructions recorded. Reason for Referral None Reported. Results Created Date Observation Date Name Description Value Unit Range Abnormal Flag Note LastModifiedBy Organization Detail LastModifiedTime 04/06/20 22 04/06/2022 pregn holden test, urine HCG negati ve Not Available [place] [address], [place], [address], 04/06/2022 16:46:09 08/23/19 23 08/23/2022 IMAGE GUIDE D PAP AND HPV REGAR DLESS image guided Pap, HPV regardless of Pap result SEE RESULT S BELOW CASE REPOR T: Cytol ogy Gynec ologi jessy Repor t Case: [id number] Autho amber victoria Provi darian: Jus Velazco Colle cted: 08/23 1708 HAND SHAPER Order ing Locat ion: [place] Patho logy Recei elis: 08/24 0328 First Scree n: Janis Moore Speci men: Scree terri Pap - Image d, Cervi x STATE MENT OF ADEQU ACY: Satis facto ry for evalu ation Trans forma tion zone compo nent prese nt FINAL DIAGN OSIS: Negat piyush for Intra epith elial Lesio n or Geoff kaufman (NIL) . Elect mirella coleandres edgar d by Janis Moore on 023 at 2:05 PM ----- ----- ----- ----- ----- ----- ----- ----- ----- ----- ----- ----- ----- ----- ----- ----- ----- ---- HPV RESUL TS: HPV mRNA E6/E7 : No HPV mRNA Detec yohana NOTE: This high risk HPV mRNA assay detec ts fourt een high- risk HPV types (16, 18, 31, 33, 35, 39, 45, 51, 52, 56, 58, 59, 66, 68) witho ut diffe renti ation . COMME NT: Note: This speci men was revie wed by a Cytot echno logis t and/o r Patho logis t (as indic ated in this repor t) after evalu ation using the Thinp rep Imagi ng Syste m. CLINI JESSY INFOR MATIO N: Menst rual Statu s: LMP (if appli cable ): Clini jessy Histo ry/Pr eviou s Pap: Type of Neopl ernesto (if appli cable ): Signi fican t Clini jessy Findi ngs: Other Histo ry: Hormo alexey (if appli cable ): PAP EDUCA NAINA L NOTE: The Pap Test is a scree terri test with an inher ent false negat piyush rate. Liqui d-bas ed sampl ing may decre ase, but will not elimi cyrus, false negat piyush resul ts. A negat piyush resul t does not precl ude the prese nce and/o r devel opmen t of disea se, since the prese nce of abnor mal cells in the sampl e depen ds on the locat ion of the lesio n and sampl ing techn ique. Cristal nued regul ar scree terri is the best metho d of cance r preve ntion . If repor yohana cytol ogic findi ng do not corre late with physi jessy and/o r histo rical findi ngs, furth er inves tigat ion is recom malvin d, as clini keith lieberman nted. Not Available [facility] (Lab) [address] [facility], [place], [address], 08/27/2022 15:07:34 03/05/20 24 03/05/2024 CULTU RE: URINE result report SEE RESULT S BELOW Test: Cultu re: Urine Speci men Sourc e: Urine - Clean Catch Speci men Type: Urine Speci men Date: 202323 Resul t Date: 2023 0606 Resul t Statu s: Final resul t Abnor mal: No Resul ting Lab: [facility] [address] [facility] [address] Tel: CULTU RE ----- ----- ----- --- No growt h in 1 day (dete ction level of 10,00 0 colon ies / ml.) Not Available [facility] (Lab) [address] , [place], [address], 03/07/2024 07:11:23 03/05/20 24 03/05/2024 urina lysis , dipst ick Leukocytes Trace Not Available Jessie rosas [address], [place], [address], 03/05/2024 10:08:47 03/05/20 24 03/05/2024 urina lysis , dipst ick Nitrite Negati ve Not Available [place] [address], [place], [address], 03/05/2024 10:08:47 03/05/20 24 03/05/2024 urina lysis , dipst ick Urobilinogen Normal Not Available Rere monroy [address], [place], [address], 03/05/2024 10:08:47 03/05/20 24 03/05/2024 urina lysis , dipst ick Protein Trace Not Available [place] [address], [place], [address], 03/05/2024 10:08:47 03/05/20 24 03/05/2024 urina lysis , dipst ick pH 5 Not Available [place] [address], [place], [address], 03/05/2024 10:08:47 03/05/20 24 03/05/2024 urina lysis , dipst ick Specific Patton 1.030 Not Available [facility] [address], [place], [address], 03/05/2024 10:08:47 03/05/20 24 03/05/2024 urina lysis , dipst ick Ketone Negati ve Not Available [place] [address], [place], [address], 03/05/2024 10:08:47 03/05/20 24 03/05/2024 urina lysis , dipst ick Bilirubin Negati ve Not Available [place] [address], [place], [address], 03/05/2024 10:08:47 03/05/20 24 03/05/2024 urina lysis , dipst ick Glucose Normal Not Available [place] [address], [place], [address], 03/05/2024 10:08:47 03/05/20 24 03/05/2024 urina lysis , dipst ick Color Dark Yellow Not Available [place] [address], [place], [address], 03/05/2024 10:08:47 07/23/19 25 07/23/2024 WOMEN 'S HEALT H SWAB, KENDRICK tom species, tma Negati ve negati ve Not Available [facility] (Lab) [address], [place], [address], 07/29/2024 16:48:54 07/23/19 25 07/23/2024 WOMEN 'S HEALT H SWAB, KENDRICK tom glabrata, tma Negati ve negati ve Not Available [facility] (Lab) [address] [facility], [place], [address], 07/29/2024 16:48:54 07/23/19 25 07/23/2024 WOMEN 'S HEALT H SWAB, KENDRICK trichomonas vaginalis, tma Negati ve negati ve This assay tests for and diffe renti ates betwe en Kimmie da glabr coretta, the Kimmie da speci es group (C. albic ans, C. tropi calis , C. parap estrella is, C. dubli tal is), and Trich omona s vagin raghav by Trans cript ion-M ediat ed Ampli ficat ion (TMA) . Not Available [facility] (Lab) [address] [place], [address], 07/29/2024 16:48:54 07/23/19 25 07/23/2024 WOMEN 'S HEALT H SWAB, KENDRICK bacterial vaginosis (bv), tma Positi ve negati ve abnormal This test detec ts ribos omal RNA from bacte lucille assoc iated with bacte rial vagin osis (BV), inclu ding Lacto bacil tati (L. gasse ri, L. crisp atus and L. jense rogelio), Gardn erell a vagin raghav, and Atopo bium vagin ae by Trans cript ion-M ediat ed Ampli ficat ion (TMA) . A singl e quali tativ e resul t is repor yohana based on instr ument softw are to deter mine BV posit piyush or negat piyush statu s. Not Available [facility] (Lab) [address] [place], [address], 07/29/2024 16:48:54 07/23/1907/23/2024 IMAGE GUIDE D PAP AND HPV REGAR DLESS image guided Pap, HPV regardless of Pap result SEE RESULT S BELOW CASE REPOR T: Cytol ogy Gynec ologi jessy Repor t Case: [id number] Autho amber victoria Provi darian: Cassandra Heard NP Colle cted: 07/23 1314 Order ing Locat ion: [place] Patho shannan Landry elis: 07/24 0231 First Scree n: Cat robins, Pablo ed, CT Rescr een: Dasia Edwards , [place] Speci men: Scree terri Pap - Image d, Cervi x STATE MENT OF ADEQU ACY: Satis facto ry for evalu ation Trans forma tion zone compo nent absen t The absen ce of an endoc ervic al compo nent was confi rmed by an addit ional scree ner. ----- ----- ----- ----- ----- ----- ----- ----- ----- ----- ----- ----- ----- ----- ----- ----- ----- ---- FINAL DIAGN OSIS: Negat piyush for Intra epith elial Cici lowe or Geoff kaufman (NIL) . Elect mirella kay by Dasia Edwards , CT on 025 at 1545 FIELD CONTROL INSPECTOR ----- ----- ----- ----- ----- ----- ----- ----- ----- ----- ----- ----- ----- ----- ----- ----- ----- ---- HPV RESUL TS: HPV mRNA E6/E7 : No HPV mRNA Detec yohana NOTE: This high risk HPV mRNA assay detec ts fourt een high- risk HPV types (16, 18, 31, 33, 35, 39, 45, 51, 52, 56, 58, 59, 66, 68) witho ut diffe renti ation . COMME NT: This speci men was revie wed by a Cytot echno logis t and/o r Patho logis t (as indic ated in this repor t) after evalu ation using the Thinp rep Imagi ng Syste m. CLINI JESSY INFOR MATIO N: Menst rual Statu s: LMP (if appli cable ): Clini jessy Histo ry/Pr eviou s Pap: Type of Neopl ernesto (if appli cable ): Signi fican t Clini jessy Findi ngs: Other Histo ry: Hormo alexey (if appli cable ): PAP EDUCA NAINA L NOTE: The Pap Test is a scree terri test with an inher ent false negat piyush rate. Liqui d-bas ed sampl ing may decre ase, but will not elimi cyrus, false negat piyush resul ts. A negat piyush resul t does not precl ude the prese nce and/o r devel opmen t of disea se, since the prese nce of abnor mal cells in the sampl e depen ds on the locat ion of the lesio n and sampl ing techn ique. Cristal nued regul ar scree terri is the best metho d of cance r preve ntion . If repor yohana cytol ogic findi ng do not corre late with physi jessy and/o r histo rical findi ngs, furth er inves tigat ion is recom malvin d, as clini keith lieberman nted. Not Available [facility] (Lab) [address], [place], [address], 07/29/2024 16:48:55 04/12/20 22 04/12/2022 US, pelvi s No observ ation record ed. [email or web address] [place] [address], [place], [address], 04/12/2022 17:54:41 04/12/20 22 04/12/2022 US, trans vagin al No observ ation record ed. [email or web address] [place] [address], [place], [address], 04/12/2022 17:54:30 04/12/20 22 04/12/2022 US, pelvi s No observ ation record ed. PEGGY Regan [address], [place], [address], 05/04/2022 14:26:31 08/25/19 23 08/23/2022 MAMMO , scree terri, bilat eral No observ ation record ed. [address] [facility], [place], [address], 11/07/2022 12:12:16 08/25/19 23 08/23/2022 MAMMO , scree terri, bilat eral No observ ation record ed. [address] [facility], [place], [address], 11/07/2022 12:14:03 05/15/20 23 09/14/2022 MAMMO , diagn ostic , digit al, bilat eral No observ ation record ed. [address] [facility] [address], [place], [address], 05/15/2023 15:21:39 07/23/19 25 07/23/2024 MAMMO , scree terri, digit al, bilat eral No observ ation record ed. [email or web address] [address], [place], [address], 07/26/2024 11:45:59 07/24/19 25 07/23/2024 MAMMO , scree terri, digit al, bilat eral No observ ation record ed. [facility] (Mammography) [address], [place], [address], 07/24/2024 12:52:58 Result Notes None recorded. Problems Name Problem SNOMED Code Status Onset Date Resolution Date Notes Provider Name and Address Organization Details Recorded Time Speciali zed medical examinat ion Completed 201002/17/2021 Gynecolo gical Examinat ion;Kwabena rded Elsewher e: No Locat ion: [facility] S ource: EHR Tugger Operator gilbert: N Practi ce ID: 0001 Shreyas lable Time: 01:00:00 PM Oliva Barragan MD [address], [place], [address], [facility] 1 16:28:29 Screenin g for malignan t neoplasm of cervix Completed 201002/17/2021 Screenin g for malignan t neoplasm s of the cervix;R ecorded Elsewher e: No Locat ion: [facility] S ource: EHR Tugger Operator gilbert: N Practi ce ID: 0001 Shreyas lable Time: 01:00:00 PM Oliva Barragan MD [address], [place], [address], [facility] 16:28:25 Tobacco dependen ce syndrome [id number] Completed 201005/12/2021 Nondepen dent tobacco use disorder ;Practic e ID: 0001 Rosibel Crabtree [facility], [facility] 13:14:58 Vaginiti s and vulvovag initis Completed 201002/17/2021 Vaginiti s and vulvovag initis, unspecif ied;Prac crissy ID: 0001 Oliva Barragan MD [address], [place], [address], [facility] 16:28:33 Family planning surveill ance Completed 201102/17/2021 Contrace ptive surveill ance, unspecif ied;Prac crissy ID: 0001 Oliva Barragan MD [address], [place], [address], [facility] 16:28:21 Problem Notes None recorded. Procedures Surgical History Date Name Laterality Status Provider Name and Address Organization Details Recorded Time 03/22/2 023 Date of Last Mammogram completed Doris Chávez [facility] 07/23/2024 09:41:29 022 Date of Last Pap Smear completed Rosibel Crabtree [facility] 04/06/2022 16:36:22 loop electrosurgical excision procedure completed IAN Lemus [address], [place], [address], [facility] 07/23/2024 09:40:52 Imaging Results Imaging Date Name Status LastModified by Organization Details LastModified Time 04/12/2022 US, pelvis completed [email or web address] [place] [address], [place], [address], 04/12/2022 17:54:41 04/12/2022 [facility]inal [email or web address] [address], [place], [address], 04/12/2022 17:54:30 04/12/2022 US, pelvis completed PEGGY Shereen [address], [place], [address], 05/04/2022 14:26:31 08/23/2022 MAMMO, screening, bilateral completed [address], [address], 11/07/2022 12:12:16 08/23/2022 MAMMO, screening, bilateral completed [address], [place], [address], 11/07/2022 12:14:03 09/14/2022 MAMMO, diagnostic, digital, bilateral completed [address] [facility] [address] [address], [place], [address], 05/15/2023 15:21:39 07/23/2024 MAMMO, screening, digital, bilateral completed [address] [place], [address], 07/26/2024 11:45:59 07/23/2024 MAMMO, screening, digital, bilateral completed [facility] (Mammography) [address], [place], [address], 07/24/2024 12:52:58 Procedure Notes None recorded. Medical Equipment None [...] completed Not Available Not Available Not Available metronida zole 0.75 % (37.5 mg/5 gram) vaginal gel APPLY VAGINALL Y AT BEDTIME FOR 5 NIGHTS active Not Available Not Available No t Available prednison e 20 mg tablet 07/23 [...] completed Not Available Not Available Not Available cephalexi [...] Prescrib ed Elsewher e: Yes Loca tion: [facility] : [facility]/20 12 01:00:00 PM [...] Prescrib ed Elsewher e: No Locat ion: [facility] odify By: meaghan chew DateTime : 09/10/19 [...] Prescrib ed Elsewher e: No Locat ion: [facility] odify By: meaghan chew DateTime : 09/10/19 [...] Zubsolv 0.7 mg-0.18 mg sublingua l tablet DISSOLVE 1 AND 1/2 TABLETS UNDER THE TONGUE TWICE DAILY active Not Available Not Available No t Available Vitals Date Recorded Body height Body mass index (BMI) Body weight Provider Name and Address Organization Details Last Updated DateTime 04/21/2022 162.56 cm 25.6 kg/m2 51614.26 g Rosibel Crabtree [facility] 04/21/2022 17:18:23 Date Recorded Systolic blood pressure Diastolic blood pressure Provider Name and Address Organization Details Last Updated DateTime 04/21/2022 122 mm[Hg] 74 mm[Hg] Leslee Harvey, [facility] [address], [place], [address], [facility] 04/21/2022 17:38:39 Date Recorded Body height Body mass index (BMI) Body weight Provider Name and Address Organization Details Last Updated DateTime 08/23/2022 162.56 cm 24.4 kg/m2 50460.55 g Rosibel Shukri [facility] 08/23/2022 16:54:25 Date Recorded Systolic blood pressure Diastolic blood pressure Provider Name and Address Organization Details Last Updated DateTime 08/23/2022 114 mm[Hg] 80 mm[Hg] Leslee Harvey, [facility] [address], [place], [address], [facility] 08/23/2022 17:07:17 Date Recorded Body height Provider Name an d Address Organization Details Last Updated DateTime 03/05/2024 162.56 cm Cassy Al [facility] 03/05/2024 10:08:27 Date Recorded Body height Body mass index (BMI) Body weight Systolic blood pressure Diastolic blood pressure Systolic blood pressure Diastolic blood pressure Provider Name and Address Organization Details Last Updated DateTime 162.56 cm 27.8 kg/m2 37085.9 6 g 146 mm[Hg] 85 mm[Hg] 144 mm[Hg] 91 mm[Hg] Doris Chávez [facility] 10:31:23 Social History Question Answer Notes LastModified by Organizat ion Details LastModified Time Tobacco Smoking Status Current Every Day Smoker Luz Elena mills, [facility] 08/23/2022 16:37:27 Do You [...] Or The Highest Degree You Have Received? 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 [id number] Information not available 05/12/2021 Do You Use Any Illicit Or Recreational Drugs? No Information not available 05/12/2021 Do You Use Sunscreen Routinely? Yes Information not available 05/12/2021 Have You Used IV Drugs? No Information not available 08/18/2021 Sex: Unknown Functional Status Question Answer Note LastModified by Organizat ion Details LastModified Time Do you have difficulty walking or climbing stairs? No [email or web address] Information not available 08/23/2022 Are you able to walk? YESWOREST Information not available 05/12/2021 Are you able to care for yourself? Yes [email or web address] Information not available 08/23/2022 Do you have difficulty dressing or bathing? No [email or web address] Information not available 08/23/2022 What is your [...] Not available 2021 17:18:37 Mother Hypertensive disorder Not available 2023 09:26:18 Notes:Father - small [...] SNOMED-CT Code Diagnosis ICD10 Code Diagnosis Note [id number] Leslee Harvey [facility] [address] [address] 05/05/2020 14:23:06 05/05/2020 17:50:27 Gynecologic examination 87461882 Z01.419 Take Calcium with Vitamin D 1200mg [...] Declines need std screening Encouraged smoking cessation. 47837 Oliva Barragan MD [place] [address] [address] 02/17/2021 16:09:38 02/17/2021 18:00:57 Vaginal discharge 571878509 N89.8 Venereal d isease screening 371214386 Z11.3 26020 Leslee Harvey [facility] [address] [address] 08/18/2021 16:39:32 08/18/2021 17:37:10 Gynecologic examination 27435853 Z01.419 Take Calcium with Vitamin D 1200mg [...] screening sent Encouraged smoking cessation. Genetic screen discussed amwy next year [id number] Leslee Harvey , [facility] [address] [address] 04/06/2022 16:14:30 04/06/2022 17:57:16 Abnormal uterine bleeding 2856783702 9100 N93.9 Exam tenderness in adnexal bilaterall [...] and review of plan of care. Vaginitis 31517637 N76.0 Treated for suspected yeast todayRx sent Counseled on medication R/B's, Most common side effects, & use. All questions were answered to patient satisfacti on. [id number] Sera Crabtree [place] [address],[place] [address] 04/12/2022 16:33:47 04/12/2022 17:40:27 Irregular periods 52023590 N92.6 [id number] Leslee Harvey [facility] [address],[place] [address] 04/21/2022 16:32:52 04/21/2022 17:40:15 Abnormal uterine bleeding 5828412371 9100 N93.9 US reviewedSx 's have resolvedWe agreed to monitor since sx's gone.Will check in at her upcoming WWE in 07/2022 and if any thing changes contact us sooner. Time spent in visit is a total of 15 mins with at least 50% of visit consisting of counseling and review of plan of care. Screening mammography 24 982811 Z12.31 179233 Leslee Harvey [facility] [address],[place] [address] 08/23/2022 16:37:21 08/25/2022 14:29:54 Gynecologic examination 06741997 Z11.51 Z11.3 Z11.8 Take Calcium with Vitamin [...] Routine Labs PCPMammo ordered Screening mammography 24 604571 Z12.31 [id number] Cassy Melendez [place] [address] [address] 03/05/2024 09:25:57 03/05/2024 13:30:53 Urinary symptoms 837087985 R39.9 525494 IAN Lemus [place] [address] [address] 07/23/2024 09:28:08 07/23/2024 11:42:11 Gynecologic examination 96683839 Z01.419 WWEBC - declinedPa p - done todaySTI screen - declinedMa mmogram - order givenColon cancer screening - n/aRoutine labs - PCPBP precaution s discussed, encouraged PCP f/uRTC in 1 yr or sooner if needed Suggested Calcium with Vitamin D daily. Patient advised to get an annual flu shot in the fall and she could obtain at local pharmacy. Also to obtain TDap vaccinatio n if you have not had one in the last 10 years. Recommend yearly mammograms . Encouraged monthly self breast exams. Encourage safe sexual practices, to use condoms and limit partners if not already in a monogamous relationsh ip. Engage in regular exercise. Avoid tobacco and illicit drugs. This lifestyle behavior pattern will lead to less health conditions and longer life span. If BMI greater than 25 dietary consult advised. All questions have been answered. Screening for malignant neoplasm of breast 463701405 Z12.39 Vaginal odor 428133487 N 89.8 exam wnlvaginit is panel sentvulvar care guidelines discussed Hemorrhoids 22811165 K64 .9 offered referral to colorectal surgerydis cussed fiber supplement s/preventi ng constipati on/increas e water intake Time spent in visit is a total of 30 mins with at least 50% of visit consisting of counseling and review of plan of care. Health Concerns Section Related Observation LastModified by Organization Detai ls LastModified Time None Recorded Concern Status LastModified by Organization Details LastModified Time None Recorded Advance Directives Directive N: Payers Encounter Date Sequence Insurance Name Policy Number Policy Sterling Covered Member ID Sterling Member ID Guarantor Name 04/12/2022 1 [facility] ON OR AFTER 12/24/20 (MEDICAID REPLACEMENT - HMO) [id number] Gladys Farnsworth [id number] Gladys Farnsworth 04/21/2022 1 [facility] ON OR AFTER 12/24/20 (MEDICAID REPLACEMENT - HMO) [id number] Gladys Farnsworth [id number] Gladys Farnsworth 08/23/2022 1 [facility] ON OR AFTER 12/24/20 (MEDICAID REPLACEMENT - HMO) [id number] Gladys Farnsworth [id number] Gladys Farnsworth 03/05/2024 1 [facility] ON OR AFTER 12/24/20 (MEDICAID REPLACEMENT - HMO) [id number] Gladys Farnsworth [id number] Gladys Farnsworth 07/23/2024 1 [facility] ON OR AFTER 12/24/20 (MEDICAID REPLACEMENT - HMO) [id number] Gladys Farnsworth [id number] Gladys Farnsworth Notes Date Note Type Note Provider Name and Address Organization Details Recorded Time 04/21/2022 text/html Here today for U review. Leslee Harvey, JENN- [address], [place], [address], [facility] 04/21/2022 17:40:33 08/23/2022 text/html Annual [...] 42; Followed with yearly pap smears IAN James- [address], [place], [address], [facility] 08/24/2022 09:45:11 07/23/2024 text/html Annual GYNReport ed bypatient.Menstrua l cycle:Normal menses Urinary symptoms:No hematuria; No incontinence Vulva:No genital lesion Vagina:Normal vaginal discharge; vaginal odor Breast:No breast pain; No breast lump; No nipple discharge Current Contraception:not currently SA Sexual complaints:No sexual complaints; No pain during intercourse; Normal libido Menopausal Symptoms:No menopausal symptoms; Normal vaginal lubrication Psychological symptoms:No depression; No anxiety; No PMDD Preventive measures:Encourage self breast examination; Encourage regular exercise; Encourage no tobacco use; Encourage regular mammograms starting age 42Notes:44y wweh/o LEEP in 2004normal paps sincelast pap 07/2022 : nilm, HPV (-)mammogram - has scheduled today vaginal odor on and offneg itching/pain/abnor mal discharge hemorrhoid x 6 monthsdenies itching/pain/recta l bleeding or constipation/diarr natalioa IAN Lemus [address], [place], [address], [facility] 07/23/2024 11:35:45 OBGyn Episode Ob Episode Information Episode Created Date Number of Fetuses Patient Bloodtype Patient rh Status Prepregnancy Weight lbs Domestic Partner Domestic Partner Phone Father Name Shirt Closer Status 02/18/20 21 1 CLOSED Fetus Data First Name Last Name Admitted to NICU Weight (g) Sex Living Outcome Pediatric Complications Fetus ID Race Codes Race Delivery Type , Induced [id number] Kartik Calculation Initial Kartik Date Initial Exam [...]
--- OUTSIDE RECORDS SUMMARY | 2024-09-13 13:50 | XMS_ITS ---
Author Organization [facility] Address [address] [place] [address] Care Team Providers Care Cotton Expert Name Role Phone Gus Elena Primary Care Provider Soumya Morales Unavailable [phone] Cortez Garza Unavailable [phone] REASON FOR VISIT meds Social History Sex Assigned At : Social History Observation Description Sex Assigned At Female Encounters Encounter Location Date Provider Diagnosis [address] [place] [address] 09/10/2024 Cortez Garza Plan Of Treatment No Information Progress Notes * Gladys FARNSWORTHDOB:[birth year] (44 yo F)Acc No.[id number]:09/10/2024 Patient: Gladys NICOLAS :1980 A ge:44 Y S ex:Female Address:[address], [place], [address] * true * Date: Generated for Printi ng/Faxing/eTransmitting on: 0 09/13/2024 01:50 PM CDT
== END 2024-09-13 13:28 | disposition home or self-care (01) ==
LOC: ANHIMG 13:28
PROVIDERS: Visit Provider Nurse Practitioner
DX: R92.8 Other abnormal and inconclusive findings on diagnostic imaging of breast (principal)
CPT/HCPCS: 77061; 77065; G0279

== ENCOUNTER 2025-05-12 12:43 | Outpatient (CLI) | payer OTHER, SELFPAY ==
--- NOTE | ~2025-05-12 | MM_ITS ---
EXAMINATION: MM diagnostic triny RT w dawna INDICATION: 45-year old female; 6 month follow up calcifications in the central at posterior depth in the right breast. COMPARISON: 09/13/2024 through 08/23/2022. TECHNIQUE: Right breast Digital breast tomosynthesis CC and MLO views and ML with magnification views in ML and CC of the right breast were obtained FINDINGS: There are scattered areas of fibroglandular density. The calcifications of concern in the outer central right breast at posterior depth reidentified is Unchanged. This calcifications demonstrate layering on the 90 degree lateral view consistent with benign microcyst calcifications. No new focal dominant mass, architectural distortion, or suspicious microcalcifications are identified IMPRESSION: Benign calcifications in the outer central right breast. No further investigation necessary. No evidence of malignancy in right breast. RECOMMEND: Annual bilateral mammogram in 6 months. BI-RADS 2, BENIGN Reviewed, dictated and finalized at location B. A [employer] RO[employer] HELPER IMPRESSION: Benign calcifications in the outer central right breast. No further investigati on necessary. No evidence of malignancy in right breast. RECOMMEND: Annual bilateral mammogram in 6 months. BI-RADS 2, BENIGN
--- OUTSIDE RECORDS SUMMARY | 2025-05-12 21:42 | XMS_ITS | Data Portability ---
Author Organization [facility] Address [address] [place] [address] [place] [address] Assessment Encounter Date Assessment Date Assessment LastModified by Organization Details LastModified Time 08/23/2022 08/23/2022 Annual gynecological exam performed. Patient will come back in a year unless there are new symptoms. [email or web address] Not available 08/23/2022 16:53:53 07/23/2024 07/23/2024 Annual gynecological exam performed. Patient will come back in a year unless there are new symptoms. [email or web address] Not available 07/23/2024 09:21:18 Plan of Treatment Reminders Order Date Submit Date Provider Last Modified By Organization Details Last Modified Time Details Appointments None recorded. Lab unlisted lab - women's health swab plus, KENDRICK 2024 025 [facility] (Lab), [address] [facility], [place], [address], 5 19:28:32 urinalysis , dipstick 2023 024 [facility], [place], [address], 4 10:09:46 Referral None recorded. Procedures None recorded. Surgeries None recorded. Imaging MAMMO, screening, digital, bilateral 2024 025 [facility], [address], [address] [address], [place], [address], 5 11:47:59 MAMMO, screening, bilateral 2022 023 [facility], [address], [address], [place], [address], 3 05:01:35 MAMMO, screening, bilateral [address], [address], [place], [address], 2 10:00:12 Medication Orders None recorded. Patient TargetsNo targets recorded. Patient InstructionsNo instructions recorded. Reason for Referral None Reported. 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 Juan Luis arias edgar d by Janis Moore on 023 [...] as clini keith lieberman nted. Not Available [facility] (Lab) [address], [place], [address], 08/27/2022 15:07:34 03/05/20 24 03/05/2024 CULTU RE: URINE result report SEE RESULT S BELOW Test: Cultu re: Urine Speci men Sourc e: Urine - Clean Catch Speci men Type: Urine Speci men Date: 2023 0923 Resul t Date: 2023 0606 Resul t Statu s: Final resul t Abnor mal: No Resul ting Lab: [facility] [address] [facility] [place] [address] Tel: CULTU RE ----- ----- ----- --- No growt h in 1 day (dete ction level of 10,00 0 colon ies / ml.) Not Available [facility] (Lab) [address] [facility], [place], [address], 03/07/2024 07:11:23 03/05/20 24 03/05/2024 urina lysis , dipst ick Leukocytes Trace Not Available [facility] [address], [place], [address], 03/05/2024 10:08:47 03/05/20 24 03/05/2024 urina lysis , dipst ick Nitrite Negati ve Not Available [facility] [address], [place], [address], 03/05/2024 10:08:47 03/05/20 24 03/05/2024 urina lysis , dipst ick Urobilinogen Normal Not Available [facility] eliana [address], [place], [address], 03/05/2024 10:08:47 03/05/20 24 03/05/2024 urina lysis , dipst ick Protein Trace Not Available [facility] [address], [place], [address], 03/05/2024 10:08:47 03/05/20 24 03/05/2024 urina lysis , dipst ick pH 5 Not Available [facility] [address], [place], [address], 03/05/2024 10:08:47 03/05/20 24 03/05/2024 urina lysis , dipst ick Specific [place] 1.030 Not Available [facility] [address], [place], [address], 03/05/2024 10:08:47 03/05/20 24 03/05/2024 urina lysis , dipst ick Ketone Negati ve Not Available [facility] [address], [place], [address], 03/05/2024 10:08:47 03/05/20 24 03/05/2024 urina lysis , dipst ick Bilirubin Negati ve Not Available [facility] [address], [place], [address], 03/05/2024 10:08:47 03/05/20 24 03/05/2024 urina lysis , dipst ick Glucose Normal Not Available [facility] [address], [place], [address], 03/05/2024 10:08:47 03/05/20 24 03/05/2024 urina lysis , dipst ick Color Dark Yellow Not Available [facility] [address], [place], [address], 03/05/2024 10:08:47 07/23/19 25 07/23/2024 WOMEN 'S HEALT H SWAB, KENDRICK tom species, tma Negati ve negati ve Not Available [facility] (Lab) [address] [facility], [place], [address], 07/29/2024 16:48:54 07/23/19 25 07/23/2024 WOMEN 'S HEALT H SWAB, KENDRICK tom glabrata, tma Negati ve negati ve Not Available [facility] (Lab) [address] [place], [address], 07/29/2024 16:48:54 07/23/1907/23/2024 WOMEN 'S HEALT H SWAB, KENDRICK trichomonas vaginalis, tma Negati ve negati ve This assay tests for and diffe renti ates betwe en Kimmie da glabr coretta, the Kimmie da speci es group (C. albic ans, C. tropi calis , C. parap estrella is, C. dubli niens is), and Trich omona s vagin raghav by Trans cript ion-M ediat ed Ampli ficat ion (TMA) . Not Available [facility] (Lab) [address] [facility], [place], [address], 07/29/2024 16:48:54 07/23/19 25 07/23/2024 WOMEN 'S [...] or negat piyush statu s. Not Available [facility] (Lab) [address] [facility], [place], [address], 07/29/2024 16:48:54 07/23/1907/23/2024 IMAGE GUIDE D PAP AND HPV REGAR DLESS image guided Pap, HPV regardless of Pap result SEE RESULT S BELOW CASE REPOR T: Cytol ogy Gynec ologi jessy Repor t Case: [id number] Autho amber victoria Provi darian: Cassandra Heard, COBBLER APPRENTICE Colle cted: 07/23 1314 Order ing Locat ion: [place] Patho shannan Recei elis: 07/24 0231 First Scree n: Pablo Sanchez ed, CT Rescr een: Dasia Edwards , CT Speci men: Sonja murray Pap - Image d, Cervi x STATE [...] OSIS: Negat piyush for Intra epith elial Lesdeondre lowe or Geoff kaufman (NIL) . Elect mirella kay by Dasia Edwards , CT on 025 at 1545 HEAD OF CONSERVATION ----- ----- ----- ----- ----- ----- ----- [...] is recom malvin d, as clini keith warreron nted. Not Available [facility] (Lab) [address] [facility], [place], [address], 07/29/2024 16:48:55 03/10/2003/10/2025 WOMEN 'S HEALT H SWAB PLUS, KENDRICK bacterial vaginosis (bv), tma Negati ve negati ve Not Available [facility] (Lab) [address] [place], [address], 03/11/2025 19:28:32 03/10/2003/10/2025 WOMEN 'S HEALT H SWAB PLUS, KENDRICK tom species, tma Negati ve negati ve Not Available [facility] (Lab) [address] [place], [address], 03/11/2025 19:28:32 03/10/2003/10/2025 WOMEN 'S HEALT H SWAB PLUS, KENDRICK tom glabrata, tma Negati ve negati ve Not Available [facility] (Lab) [address] [facility], [place], [address], 03/11/2025 19:28:32 03/10/2003/10/2025 WOMEN 'S HEALT H SWAB PLUS, KENDRICK trichomonas vaginalis, tma Negati ve negati ve Not Available [facility] (Lab) [address] [facility], [place], [address], 03/11/2025 19:28:32 03/10/2003/10/2025 WOMEN 'S HEALT H SWAB PLUS, KENDRICK chlamydia trachomatis, PCR Negati ve negati ve Not Available [facility] (Lab) [address] [facility], [place], [address], 03/11/2025 19:28:32 03/10/2003/10/2025 WOMEN 'S HEALT H SWAB PLUS, KENDRICK neisseria gonorrhoeae, PCR Negati ve negati ve Bacte rial vagin osis detec ts the follo wing bacte lucille assoc iated with bacte rial vagin osis (BV): Lacto bacil tati (L. gasse ri, L. crisp atus and L. jense rogelio), Gardn erell a vagin raghav, and Atopo bium vagin ae. A singl e quali tativ e resul t is repor yohana base on instr ument softw are to deter mine BV posit piyush or negat piyush statu s. The Kimmie da speci es group tests for C. albic ans, C. tropi calis , C. parap estrella is, C. dubli niens is. Testi ng is perfo rmed using the Trans cript ion Media yohana Ampli ficat ion metho d. Tests for Kimmie da glabr coretta, Trich omona s vagin raghav, Chlam ydia trach omati s, and Neiss eria gonor rhoea e are also inclu ded in this panel . Not Available [facility] (Lab) [address] [facility], [place], [address], 03/11/2025 19:28:32 10/18/20 22 04/12/2022 US, pelvi s No observ ation record ed. [email or web address] [facility] [address], [place], [address], 04/12/2022 17:54:41 04/12/20 22 04/12/2022 US, trans vagin al No observ ation record ed. [email or web address] [facility] [address], [place], [address], 04/12/2022 17:54:30 04/12/20 22 04/12/2022 US, pelvi s No observ ation record ed. PEGGY Regan [address], [place], [address], 05/04/2022 14:26:31 08/25/19 23 08/23/2022 MAMMO , scree terri, bilat eral No observ ation record ed. [address], [place], [address], 11/07/2022 12:12:16 08/25/19 23 08/23/2022 MAMMO , scree terri, bilat eral No observ ation record ed. [address], [place], [address], 11/07/2022 12:14:03 05/15/20 23 09/14/2022 MAMMO , diagn ostic , digit al, bilat eral No observ ation record ed. [address] [facility] [address], [place], [address], 05/15/2023 15:21:39 07/23/19 25 07/23/2024 MAMMO , scree terri, digit al, bilat eral No observ ation record ed. [email or web address] [address], [place], [address], 07/26/2024 11:45:59 07/24/1907/23/2024 MAMMO , scree terri, digit al, bilat eral No observ ation record ed. [facility] (Mammography) [address], [place], [address], 07/24/2024 12:52:58 09/14/1909/13/2024 MAMMO , diagn ostic , unila teral No observ ation record ed. [address], [place], [address], 03/15/2025 12:56:55 09/17/1909/13/2024 MAMMO , diagn ostic , unila teral No observ ation record ed. [address], [place], [address], 03/15/2025 12:56:55 Result Notes None recorded. Problems Name Problem SNOMED Code Status Onset Date Resolution Date Notes Provider Name and Address Organization Details Recorded Time Tobacco dependen ce syndrome 18323790 Completed 201005/12/2021 Nondepen dent tobacco use disorder ;Practic e ID: [address] [facility] 13:14:58 Vaginiti s and vulvovag initis Completed 201002/17/2021 Vaginiti s and vulvovag initis, unspecif ied;Prac crissy ID: 0001 Oliva Barragan MD [address], [place], [address], [facility] 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 16:28:25 Family planning surveill ance Completed 201102/17/2021 Contrace ptive surveill ance, unspecif ied;Prac crissy ID: 0001 Oliva Barragan MD [address], [place], [address], [facility] 16:28:21 Problem Notes None recorded. Procedures Surgical History Date Name Laterality Status Provider Name and Address Organization Details Recorded Time 025 Date of Last Mammogram completed [facility] 03/10/2025 15:33:17 025 Date of Last Pap Smear completed [facility] 03/10/2025 15:32:04 loop electrosurgical excision procedure completed IAN Lemus [address], [place], [address], [facility] 07/23/2024 09:40:52 Imaging Results None recorded. Procedure Notes None recorded. Medical Equipment None [...] TAKE 1 TABLET BY MOUTH EVERY DAY AT BEDTIME NEEDED FOR 30 DAYS 03/10 completed Not Available Not Available Not Available fluconazo le 150 mg tablet Take 1 tablet every day by oral route as directed for 1 day. 04/21 completed Not Available Not Available Not Available metronida zole 0.75 % (37.5 mg/5 gram) vaginal gel APPLY VAGINALL Y AT BEDTIME FOR 5 NIGHTS 03/10 completed Not Available Not Available Not Available prednison e 20 mg tablet 07/23 completed Not Available Not Available Not Available hydroxyzi ne HCl 50 mg tablet TAKE 1 TABLET BY MOUTH TWICE DAILY FOR ACUTE OPIOID THERAPY 02/17 completed Not Available Not Available Not Available quetiapin e 100 mg tablet 1-2 TABLET ORALLY ONCE A DAY active Not Available Not Available No t Available dextroamp hetamine- amphetami ne 30 mg tablet TAKE 1 TABLET BY MOUTH TWICE A DAY active Not Available Not Available No t [...] HCl 25 mg tablet TAKE 1 TABLET BY MOUTH EVERY DAY NEEDED FOR SLEEP 03/10 completed Not Available Not Available Not Available hydrochlo rothiazid e 25 mg tablet [...] Prescrib ed Elsewher e: Yes Loca tion: [facility] odify By: [email or web address] Encount er DateTime : 04/03/20 12 01:00:00 [...] Prescrib ed Elsewher e: No Locat ion: [facility] odify By: meaghan chew DateTime : [...] Prescrib ed Elsewher e: No Locat ion: Sumit rodriguez [facility] M odoscar By: adaesme Rodriguez jeevan DateTime : 09/10/19 02:00:00 PM Not Available Not Available Not [...] TONGUE AND ALLOW TO DISSOLVE SUBLINGU AL 3 TIMES A DAY active Not Available Not Available No t Available Vitals Date Recorded Body height Body mass index (BMI) Body weight Systolic And Diastolic Systolic And Diastolic Provider Name and Address Organization Details Last Updated DateTime 07/23/2024 162.56 cm 27.8 kg/m2 69169.96 g 146/85 mm[Hg] 144/91 mm[Hg] Doris Chávez [facility] 10:31:23 Date Recorded Systolic And Diastolic Provider Name and Address Organization Details Last Updated DateTime 08/23/2022 114/80 mm[Hg] Leslee Harvey, [facility]- [address], [place], [address], [facility] 08/23/2022 17:07:17 Date Recorded Body height Body mass index (BMI) Body weight Provider Name and Address Organization Details Last Updated DateTime 08/23/2022 162.56 cm 24.4 kg/m2 42933.55 g Rosibel Watt [facility] 08/23/2022 16:54:25 Date Recorded Body height Provider Name an d Address Organization Details Last Updated DateTime 03/05/2024 162.56 cm Cassy Melendez [facility] 03/05/2024 10:08:27 Date Recorded Body height Body mass index (BMI) Body weight Systolic And Diastolic Provider Name and Address Organization Details Last Updated DateTime 03/10/2025 162.56 cm 26.8 kg/m2 59777.41 g 135/86 mm[Hg] Doris Chávez [facility] 03/10/2025 15:30:54 Date Recorded Systolic And Diastolic Provider Name and Address Organization Details Last Updated DateTime 04/21/2022 122/74 mm[Hg] Leslee Harvey, [facility]- [address], [place], [address], [facility] 04/21/2022 17:38:39 Date Recorded Body height Body mass index (BMI) Body weight Provider Name and Address Organization Details Last Updated DateTime 04/21/2022 162.56 cm 25.6 kg/m2 91029.26 g Rosibel Crabtree [facility] 04/21/2022 17:18:23 Social History Question Answer Notes LastModified by Organizat ion Details LastModified Time Tobacco Smoking Status Current Every Day Smoker Luz Elena Crawford lina, [facility] 08/23/2022 16:37:27 Do You Have An Advance Directive? No Information n ot available 08/18/2021 How Many Years Have You Consumed Alcohol? 20 Information not available 08/18/2021 Are You Blind Or Do You Have Difficulty Seeing? No Information n ot available 05/12/2021 What Is Your Level Of Caffeine Consumption? Moderate Information not available 08/18/2021 How Much Tobacco Do You Chew? None Information not available 08/18/2021 In The 14 Days Before Symptom Onset, Have You Had Close Contact With A Laboratory-confirm ed COVID-19 While That Case Was Ill? No Information n ot available 08/18/2021 In The 14 Days Before [...] Of Diet Are You Following? REGULAR Information n ot available 05/12/2021 What Is The Highest Grade Or Level Of School You Have Completed Or The Highest Degree You Have Received? [id number] Information not available 08/18/2021 Are There Any [...] PPD Information not available 08/18/2021 Do You Use Sunscreen Routinely? Yes Information not available 05/12/2021 Have You Used IV Drugs? No Information not available 08/18/2021 Do You Have Difficulty Walking Or Climbing Stairs? No [email or web address] Information not available 08/23/2022 Sex: Unknown Functional Status Question Answer Note LastModified by Organizat ion Details LastModified Time Do you use any illicit or recreational drugs? No Information not available 05/12/2021 What is your level of alcohol consumption? Occasional Information not available 05/12/2021 Are you able to walk independently without assistance or assistive devices? YESWOREST Information not available 05/12/2021 Are you able to care for yourself independently? 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 No Information not available 08/23/2022 What is your exercise level? Moderate Information not available 08/18/2021 Mental Status Question Answer Note LastModified by Organization D etails LastModified Time Do you feel stressed (tense, restless, nervous, or anxious, or unable to sleep at night)? [id number] Information not available 05/12/2021 Family History Relationship Description Onset Age of this Age Resolved Age Notes LastModified by Organization Details LastModified Time Maternal Grandmother Heart disease Not available 2021 17:18:37 Maternal Grandmother Disorder of thyroid gland Not available 2021 17:18:37 Father Diabetes mellitus Not available 2021 17:18:37 Father Hypercholest erolemia Not available 2021 17:18:37 Father Hypertensive disorder Not available 2021 17:18:37 Mother Hypertensive disorder [email or web address] Not available 2023 09:26:18 Notes:Father - small cell ca rcinoma Medical History Condition Response Other Y Cancer Y Gynecological History Statement/Question Response Date of Last Mammogram 09/13/2024 Flow Heavy Date of LMP 02/20/2025 On BCP's at Conception? N N Was last menstrual period normal N STIs/STDs Y HPV Vaccine Y Duration of Flow (days) 10 Current Control Method None Are cycles usually normal Y Frequency of Cycle (Q days) 30 Sexually Active? N Menses Monthly Y Age of first menstrual cycle 14 Date of Last Pap Smear 07/23/2024 Sexual Problems? N Desired Control Method N/A LMP Definite N Obstetrics History GPAL:G 1 P 0 0 1 0 Type Value Induced 1 Total 1 Past Encounters Encounter ID Performer Location Encounter Start Date Encounter Closed Date Diagnosis/Indication Diagnosis SNOMED-CT Code Diagnosis ICD10 Code Diagnosis IMO Codes Diagnosis Note [id number] Leslee Harvey [facility] [address] [address] 05/05/2020 14:23:06 05/05/2020 17:50:27 Gynecologic examination 61469805 Z01.419 Take Calcium with Vitamin D 1200mg [...] Declines need std screening Encouraged smoking cessation. [id number] Oliva Barragan MD [facility] [address] [address] 02/17/2021 16:09:38 02/17/2021 18:00:57 Vaginal discharge 756074291 N89.8 Venereal d isease screening 590360521 Z11.3 [id number] Leslee Harvey [facility] [address] [address] 08/18/2021 16:39:32 08/18/2021 17:37:10 Gynecologic examination 64143924 Z01.419 Take Calcium with Vitamin D 1200mg [...] screening sent Encouraged smoking cessation. [id number]AN [facility] [address] [address] 04/06/2022 16:14:30 04/06/2022 17:57:16 Abnormal uterine bleeding 9411020177 9100 N93.9 Exam tenderness in adnexal bilaterall [...] and review of plan of care. Vaginitis 44372200 N76.0 Treated for suspected yeast todayRx sent Counseled on medication R/B's, Most common side effects, & use. All questions were answered to patient satisfacti on. [id number] Daniel Quiros MD [facility] [address] [address] 04/12/2022 16:33:47 04/12/2022 17:40:27 Irregular periods 39751500 N92.6 [id number] Leslee Harvey [facility] [address],[facility] [place] [address] 04/21/2022 16:32:52 04/21/2022 17:40:15 Abnormal uterine bleeding 1642047249 9100 N93.9 US reviewedSx 's have resolvedWe agreed to monitor since sx's gone.Will check in at her upcoming [employer] in 07/2022 and if any thing changes contact us sooner. Time spent in visit is a total of 15 mins with at least 50% of visit consisting of counseling and review of plan of care. Screening mammography 24 382528 Z12.31 [id number] Leslee Harvey [facility] [address],[facility] [place] [address] 08/23/2022 16:37:21 08/25/2022 14:29:54 Gynecologic examination 62459510 Z11.51 Z11.3 Z11.8 Take Calcium with Vitamin [...] Routine Labs PCPMammo ordered Screening mammography 24 288816 Z12.31 [id number] Daniel Quiros MD [facility] [address],[place] [address] 03/05/2024 09:25:57 03/05/2024 13:30:53 Urinary symptoms 266151122 R39.9 [id number] Cassandra Heard [facility] [address],[place] [address] 07/23/2024 09:28:08 07/23/2024 11:42:11 Gynecologic examination 72812974 Z01.419 WWEBC - declinedPa p - done [...] answered. Screening for malignant neoplasm of breast 304845056 Z12.39 Vaginal odor 178242416 N 89.8 exam wnlvaginit is panel sentvulvar care guidelines discussed Hemorrhoids 04263322 K64 .9 offered referral to colorectal surgerydis cussed fiber supplement s/preventi ng constipati on/increas e water intake Time spent in visit is a total of 30 mins with at least 50% of visit consisting of counseling and review of plan of care. [id number] IAN Lemus [facility] [address],[place] [address] 03/10/2025 15:15:44 03/10/2025 15:56:18 Vaginal discharge 603943127 N89.8 [id number] pelvic exam declined, pt collected vaginitis/ STI panle sentvulvar care guidelines discussedw ill reach out to pt with results when available Time spent in visit is a total of 25 mins with at least 50% of visit consisting of counseling and review of plan of care. Venereal d isease screening 121853346 Z11.3 61370 Health Concerns Section Related Observation LastModified by Organization Detai ls LastModified Time None Recorded Concern Status LastModified by Organization Details LastModified Time None Recorded Advance Directives Directive N: Payers Insurance Date Sequence Insurance Name Policy Number Policy Sterling Covered Member ID Sterling Member ID Guarantor Name 07/22/2024 1 [facility] PRIOR TO 12/24/2020 (MEDICAID REPLACEMENT - HMO) Gladys Farnsworth [id number] Gladys Farnsworth 03/10/2025 1 [facility] - DOS ON OR AFTER 20 (MEDICAID REPLACEMENT - HMO) [id number] Gladys Farnsworth [id number] Gladys Farnsworth Notes Date Note Type Note Provider Name and Address Organization Details Recorded Time 2 text/html ROS as noted in the HPI Here today for US review. Leslee Harvey, JENN- [address], [place], [address], [facility] 04/21/2022 17:40:33 3 text/html Annual GYNReported by PatientHistoryFor history, patient reportsno gynecologic complaints.Genitourinary symptomsFor menstrual cycle, patient reportsnormal menses. For urinary symptoms, patient reportsno hematuriaandno incontinence. For vulva, patient reportsno genital lesion. For vagina, patient reportsnormal vaginal discharge.Breast symptomsFor breast, patient reportsno breast pain,no breast lump, andno nipple discharge.ContraceptionFo r current contraception, patient reportssatisfied with current contraceptionandcondoms.E ndocrine symptomsFor sexual complaints, patient reportsno sexual complaints,no pain during intercourse, andnormal libido. For menopausal symptoms, patient reportsno menopausal symptomsandnormal vaginal lubrication.Psychological symptomsFor psychological symptoms, patient reportsno depression,no anxiety, andno pmdd.Preventative measuresFor preventive measures, patient reportsencourage self breast examination,encourage regular exercise,encourage no tobacco use,encourage regular mammograms starting age 40, andfollowed with yearly pap smears. IAN James- [address], [place], [address], [facility] 08/24/2022 09:45:11 5 text/html Annual GYNReported by PatientGenitourinary symptomsFor menstrual cycle, patient reportsnormal menses. For urinary symptoms, patient reportsno hematuriaandno incontinence. For vulva, patient reportsno genital lesion. For vagina, patient reportsnormal vaginal discharge(vaginal odor).Breast symptomsFor breast, patient reportsno breast pain,no breast lump, andno nipple discharge.ContraceptionFo r current contraception, (not currently sa).Endocrine symptomsFor sexual complaints, patient reportsno sexual complaints,no pain during intercourse, andnormal libido. For menopausal symptoms, patient reportsno menopausal symptomsandnormal vaginal lubrication.Psychological symptomsFor psychological symptoms, patient reportsno depression,no anxiety, andno pmdd.Preventative measuresFor preventive measures, patient reportsencourage self breast examination,encourage regular exercise,encourage no tobacco use, andencourage regular mammograms starting age 40.44y wweh/o LEEP in 2004normal paps sincelast pap 07/2022 : nilm, HPV (-)mammogram - has scheduled today vaginal odor on and offneg itching/pain/abnormal discharge hemorrhoid x 6 monthsdenies itching/pain/rectal bleeding or constipation/diarrhea IAN Lemus [address], [place], [address], [facility] 07/23/2024 11:35:45 5 text/html Vaginal/Vulvar ProblemReported by Patient 45yohere today d/t increase in vaginal d/cNoticed increased d/c after her last period. White, no odors/itching/irritation/ or pelvic painSA with new partner recentlyuses vagisil wash Doris mills, [facility] 03/10/2025 17:46:20 OBGyn Episode Ob Episode Information Episode Created Date Number of Fetuses Patient Bloodtype Patient rh Status Prepregnancy Weight lbs Domestic Partner Domestic Partner Phone Father Name [employer] Status 02/18/20 21 1 CLOSED Fetus Data First Name Last Name Admitted to NICU Weight (g) Sex Living Outcome Pediatric Complications Fetus ID Race Codes Race Delivery Type , Induced [id number] Kartik Calculation Initial Kartik Date Initial Exam [...]
--- OUTSIDE RECORDS SUMMARY | 2025-05-12 21:42 | XMS_ITS | Continuity of Care Document ---
Author Organization [facility] [place] Address [address] [place] [address] Assessment No assessment recorded. Plan of Treatment Reminders Order Date Submit Date Provider Last Modified By Organization Details Last Modified Time Details Appointments None recorded. Lab unlisted lab - [facility] swab plus, KENDRICK 2024 025 [facility] (Lab), [address] [place], [address], 19:28:32 Referral None recorded. Procedures None recorded. Surgeries None recorded. Imaging None recorded. Medication Orders None recorded. Patient TargetsNo targets recorded. Patient InstructionsNo instructions recorded. Reason for Referral None Reported. Results Created Date Observation Date Name Description Value Unit Range Abnormal Flag Note LastModifiedBy Organization Detail LastModifiedTime 03/10/2003/10/2025 [facility] KENDRICK bacterial vaginosis (bv), tma Negati ve negati ve Not Available [facility] (Lab) [address] [place], [address], 03/11/2025 19:28:32 03/10/20 25 03/10/2025 [facility], KENDRICK tom species, tma Negati ve negati ve Not Available [facility] (Lab) [address] [place], [address], 03/11/2025 19:28:32 03/10/20 25 03/10/2025 [facility], KENDRICK tom glabrata, tma Negati ve negati ve Not Available [facility] (Lab) [address] [facility], [place], [address], 03/11/2025 19:28:32 03/10/20 25 03/10/2025 [facility], KENDRICK trichomonas vaginalis, tma Negati ve negati ve Not Available [facility] (Lab) [address] [facility], [place], [address], 03/11/2025 19:28:32 03/10/2003/10/2025 [facility], KENDRICK chlamydia trachomatis, PCR Negati ve negati ve Not Available [facility] (Lab) [address] [facility], [place], [address], 03/11/2025 19:28:32 03/10/2003/10/2025 [facility] [...] ded in this panel . Not Available [facility] (Lab) [address] [facility], [place], [address], 03/11/2025 19:28:32 Result Notes None recorded. Problems Name Problem SNOMED Code Status Onset Date Resolution Date Notes Provider Name and Address Organization Details Recorded Time Tobacco dependen ce syndrome 14612199 Completed 201005/12/2021 Nondepen dent tobacco use disorder ;Practic e ID: 0001 Rosibel Bro [facility] 13:14:58 Vaginiti s and vulvovag initis Completed 201002/17/2021 Vaginiti s and vulvovag initis, unspecif ied;Prac crissy ID: 0001 Oliva Barragan MD [address], [place], [address], [facility] 16:28:33 Speciali zed medical examinat ion Completed 201002/17/2021 Gynecolo gical Examinat ion;Kwabena rded Elsewher e: No Locat ion: [facility] S ource: EHR [employer]ental Car Deliverer gilbert: N Practi ce ID: 0001 Shreyas lable Time: 01:00:00 PM Oliva Barragan MD [address], [place], [address], [facility] 16:28:29 Screenin g for malignan t neoplasm of cervix Completed 201002/17/2021 Screenin g for malignan t neoplasm s of the cervix;R ecorded Elsewher e: No Locat ion: [facility] S ource: EHR [employer] Deliverer gilbert: N Practi ce ID: 0001 Shreyas lable Time: 01:00:00 PM Oliva Barragan MD [address], [place], [address], [facility] 16:28:25 Family planning surveill ance Completed 201102/17/2021 Contrace ptive surveill ance, unspecif ied;Prac crissy ID: [id number] Oliva Barragan MD [address], [place], [address], [facility] 16:28:21 Problem Notes None recorded. Procedures Surgical History Date Name Laterality Status Provider Name and Address Organization Details Recorded Time 025 Date of Last Mammogram completed [facility] 03/10/2025 15:33:17 025 Date of Last Pap Smear completed [facility] 03/10/2025 15:32:04 loop electrosurgical excision procedure completed IAN Lemus [address], [place], [address], [facility] 07/23/2024 09:40:52 Imaging Results None [...] Prescrib ed Elsewher e: Yes Loca tion: [facility] : [facility] 12 01:00:00 [...] Prescrib ed Elsewher e: No Locat ion: [facility] odify By: meaghan chew DateTime : 09/10/19 [...] Prescrib ed Elsewher e: No Locat ion: [facility] odify By: meaghan chew DateTime : 09/10/19 [...] Updated DateTime 03/10/2025 162.56 cm 26.8 kg/m2 39031.41 g 135/86 mm[Hg] Doris Chávez [facility] 03/10/2025 15:30:54 Social History Question Answer Notes LastModified by Organizat ion Details LastModified Time Tobacco Smoking Status Current Every Day Smoker Luz Elena Crawford lina, [facility] 08/23/2022 16:37:27 Do You Have An [...] Or The Highest Degree You Have Received? [id number] Information not available 08/18/2021 Are There Any [...] Have Difficulty Walking Or Climbing Stairs? No [email or web address] Information not available 08/23/2022 Sex: Unknown Functional [...] able to care for yourself independently? 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 No [email or web address] Information not available 08/23/2022 What is your exercise level? Moderate Information not available 08/18/2021 Mental Status Question Answer Note LastModified by Organization D etails LastModified Time Do you feel stressed (tense, restless, nervous, or anxious, or unable to sleep at night)? [id number] Information not available 05/12/2021 Family History Relationship [...] Not available 2021 17:18:37 Mother Hypertensive disorder [email or web address] Not available 2023 09:26:18 Notes:Father - small [...] ICD10 Code Diagnosis IMO Codes Diagnosis Note [id number] IAN Lemus [place] [address] [address] 03/10/2025 15:15:44 03/10/2025 15:56:18 Vaginal discharge [id number] N89.8 26362 pelvic exam declined, pt collected vaginitis/ STI panle sentvulvar care guidelines discussedw ill reach out to pt with results when available Time spent in visit is a total of 25 mins with at least 50% of visit consisting of counseling and review of plan of care. Venereal d isease screening [id number] Z11.3 96001 Health Concerns Section Related Observation LastModified by Organization Detai ls LastModified Time None Recorded Concern Status LastModified by Organization Details LastModified Time None Recorded Payers Encounter Date Sequence Insurance Name Policy Number Policy Sterling Covered Member ID Sterling Member ID Guarantor Name 03/10/2025 1 [facility] ON OR AFTER 12/24/20 (MEDICAID REPLACEMENT - HMO) [id number] Gladys Farnsworth [id number] Gladys Farnsworth Notes Date Note Type Note Provider Name and Address Organization Details Recorded Time 03/10/2025 text/html Vaginal/Vulvar ProblemReported by Patient 45yohere today d/t increase in vaginal d/cNoticed increased d/c after her last period. White, no odors/itching/irritat ion/or pelvic painSA with new partner recentlyuses vagisil wash Doris Chávez [facility] 03/10/2025 17:46:20 OBGyn Episode No OBEpisode recorded.
== END 2025-05-12 12:44 | disposition home or self-care (01) ==
LOC: ANHFOHIMG 12:44
PROVIDERS: Visit Provider Surgery
DX: R92.1 Mammographic calcification found on diagnostic imaging of breast (principal)
CPT/HCPCS: 77061; 77065; G0279